=== PATIENT | male | born 1975 | race Caucasian/White ===

== ENCOUNTER 2024-07-13 19:10 | Emergency (ER) | payer OTHER, SELFPAY ==
--- NOTE | ~2024-07-13 | CT_ITS ---
EXAMINATION: CT HEAD WITHOUT CONTRAST CLINICAL INFORMATION: Headache with vomiting COMPARISON: None available. TECHNIQUE: Contiguous axial imaging was performed from the skull base to vertex without intravenous administration of contrast. This CT examination was performed using dose optimization techniques as appropriate, variously including the following: *Automated exposure control *Adjustment of mA and/or kV according to patient size (this includes techniques or standardized protocols for targeted exams where dose is matched to indication/reason for exam; i.e. extremities or head) *Use of iterative reconstruction technique DLP: 743 mGy-cm FINDINGS: No intracranial hemorrhage, tumors or acute infarcts identified. The ventricles and sulci are normal in size and configuration. No focal parenchymal lesions of the brain identified. The orbits and globes are normal in appearance. No intracranial soft tissue inflammatory changes noted. No significant opacification of the visualized paranasal sinuses, mastoid air cells and middle ear cavities. CT/CT head/brain wo IV con IMPRESSION: Normal unenhanced CT of the head Electronically signed by: John Ludwig MD 07/14/2024 03:31 AM EDT
[2024-07-13 19:15] VITALS: BP 141/99; PULSE 85; RESP 18; TEMP 36.9; O2SAT 95; BMI 36.0
--- NOTE | 2024-07-13 19:20 | ED_ITS ---
HPI - General Adult General Chief complaint: General Medical Stated complaint: migraine and abd pain x1wk Time Seen by Provider: 07/14/24 02:44 Source: patient and family Mode of arrival: ambulatory Limitations: no limitations History of Present Illness ED Provider: Dr. Brumfield HPI narrative: Patient does not have a history of prior headaches. He presents with a three day history of headache with nausea and vomiting. In addtion he has epigastric pain burning in nature. Onset (ago): day(s) Related Data Previous Rx's ?Medication ?Instructions ?Recorded naproxen 500 mg tablet (Naprosyn) 500 mg PO BID #20 tabs 07/14/24 ondansetron 4 mg disintegrating 4 mg PO Q8H 4 days #12 tabs 07/14/24 tablet pantoprazole 40 mg tablet,delayed 40 mg PO DAILY #20 tabs 07/14/24 release (Protonix) Allergies Allergy/AdvReac Type Severity Reaction Status Date / Time No Known Allergies Allergy Verified 07/13/24 19:19 Review of Systems 2 Review of Systems: Yes all other systems are reviewed and are negative Neurologic: Denies Sensory deficit (Neuro) [facility] Social History Social History Smoked in Last 30 Days: No Use of substances other than those prescribed or required for medical reasons: No Advance Directives: No Advance Directives Information Provided: No Do you have a plan to hurt others: No Plan Physical Exam ED Vital Signs: Vital Signs - 24 hr 07/13/24 19:15 07/14/24 00:52 07/14/24 02:50 Temperature 98.4 F 97.5 F 97.8 F Pulse Rate 85 101 H 82 Respiratory Rate 18 18 16 Blood Pressure 141/99 H 129/104 H 176/127 H Pulse Oximetry 95 96 95 Oxygen Delivery Method Room Air Room Air Room Air 07/14/24 03:12 07/14/24 04:01 Temperature 97.8 F Pulse Rate 72 65 Respiratory Rate 18 16 Blood Pressure 155/104 H 148/99 H Pulse Oximetry 97 95 Oxygen Delivery Method Room Air Room Air BMI result Body Mass Index 36.0 Const General: healthy appearing Nutritional Appearance: average body habitus Orientation/consciousness: oriented to person and patient oriented x3 Limitations: no limitations HENMT Head: Yes normal to inspection Ears: external ears normal General nose exam: Normal external nose present Mouth: Normal oral and palatal mucosa present and oropharynx normal Throat: Yes posterior oropharynx normal Eyes General: appearance normal, both eyes and all related structures Neck Neck: Yes normal visual inspection Chest Chest palpation & inspection: normal inspection of the chest Resp Auscultation: clear to auscultation bilaterally Cardio Jugular venous distension: no JVD Rate: regular rate Rhythm: regular rhythm Heart sounds: S1 normal heart sound present and S2 normal heart sound present GI Inspection: Yes normal to inspection Palpation (GI): Soft to palpation, nontender and No hepatosplenomegaly present Auscultation: normal bowel sounds General: Yes no CVA tenderness Back/Spine/Pelvis Back: no CVA tenderness Skin General skin exam: no rashes or lesions noted Neuro General: oriented to person and patient oriented x3 Cranial nerves: Yes CN's II-XII intact bilaterally Motor exam (neuro): 5/5 motor strength present throughout Sensory Exam: No Sensory deficit (Neuro) Extrem General: Yes normal to inspection Psych Appearance: grossly normal Course Course Course Narrative: RME, this is a rapid medical exam performed by Otto Marcano please refer to primary provider for complete H&P- 48-year-old male presents for evaluation of generalized epigastric pain, headache for the last 3 or 4 days. He reports nausea and vomiting today. Plan for labs, UA Reevaluation(s) Reevaluation #1: Head CT negative, patient with relief of headache after his medication will dc home Time: 04:51 Medications Administered Discontinued Medications Generic Name Dose Route Start Last Admin Trade Name Randyq PRN Reason Stop Dose Admin Ketorolac Tromethamine 30 mg 07/14/24 02:47 07/14/24 03:04 Ketorolac Tromethamine 30 Mg/Ml Vial IVPUSH 07/14/24 02:48 30 mg ONCE ONE Administration Metoclopramide HCl 10 mg 07/14/24 02:47 07/14/24 03:04 Metoclopramide Hcl 10 Mg/2 Ml Vial IVPUSH 07/14/24 02:48 10 mg ONCE ONE Administration Pantoprazole Sodium 40 mg 07/14/24 02:47 07/14/24 03:04 Pantoprazole Sodium 40 Mg/10 Ml Vial IVPUSH 07/14/24 02:48 40 mg ONCE ONE Administration Medical Decision Making Differential Diagnosis Differential Diagnoses: The differential diagnosis associated with the presentation includes (brain mass, brain bleed, migraine, headache, gastritis) Admission/Observation Consideration of admission/observation: Escalation of care including admission/observation considered (upon arrival patient considered for admission) Lab Data 07/13/24 19:30 07/13/24 19:30 Labs: Lab Results 07/13/24 07/14/24 Range/Units 19:30 03:12 WBC 8.6 (4.8-10.8) X10*3/uL RBC 5.77 (4.60-5.80) X10*6/uL Hgb 17.7 (14.0-18.0) g/dl Hct 49.6 (42.0-52.0) % MCV 86.0 (80.0-98.0) fL MCH 30.7 (27.0-33.0) pg MCHC 35.7 (31.0-36.0) g/dl RDW 12.1 (11.0-16.0) % Plt Count 199 (160-400) X10*3/uL MPV 10.5 (9.4-12.4) fL Immature Gran % (Auto) 0.2 (0.0-0.4) % Neut % (Auto) 59.5 (45-73) % Lymph % (Auto) 27.0 (20-40) % [place] % (Auto) 8.4 (2-11) % Eos % (Auto) 4.3 H (0-4) % Baso % (Auto) 0.6 (0-2) % Lymph # (Auto) 2.3 (1.2-4.9) X10*3/uL [place] # (Auto) 0.7 (0.1-1.2) X10*3/uL Eos # (Auto) 0.4 (0.0-0.4) X10*3/uL Baso # (Auto) 0.1 (0.0-0.2) X10*3/uL Abs Immat Gran (auto) 0.02 (0.00-0.03) X10*3/uL Absolute Neuts (auto) 5.1 (2.0-8.3) x10*3/uL Absolute Nucleated RBC 0.000 (0.0-0.012) X10*3/uL Nucleated RBC % (auto) 0.0 (0.0-0.2) /100WBC Sodium 139 (135-145) mmol/L Potassium 3.2 L (3.3-5.1) mmol/L Chloride 105 (96-108) mmol/L Carbon Dioxide 25 (22-29) mmol/L Anion Gap 12 (12-20) BUN 14 (9-16) mg/dL Creatinine 1.04 (0.5-1.4) mg/dL Estim Creat Clear Calc 91.4 Estimated GFR > 60 Random Glucose 113 (60-115) mg/dL Calcium 9.9 (8.4-10.2) mg/dL Total Bilirubin 0.4 (0.0-1.0) mg/dL AST 18 (5-37) U/L ALT 17 (0-40) U/L Alkaline Phosphatase 74 (39-117) U/L Total Protein 7.0 (6.5-8.0) g/dL Albumin 4.0 (3.5-5.0) g/dL Lipase 21 (8-78) U/L Urine Color Yellow Urine Appearance Clear Urine pH 5.5 (5.0-9.0) Ur Specific [place] 1.025 (1.005-1.025) Urine Protein Negative (Neg-Trace) mg/dL Urine Glucose (UA) Negative (Negative) mg/dL Urine Ketones Negative (Negative) mg/dL Urine Blood Negative (Negative) Urine Nitrite Negative (Negative) Ur Leukocyte Esterase Negative (Negative) Urine RBC 0-2 (0-2) /HPF Urine WBC 0-5 (0-5) /HPF Ur Squamous Epith Cells 0-2 (0-2) /HPF Urine Bacteria None Seen (None Seen) Hyaline Casts 0-2 (0-2) /LPF COVID-19 (ALICE) Negative (Negative) COVID-19 Clin Com See Note Independent Interpretation I performed an independent interpretation of an: Ultrasound (bedside US performed by me, no gallstones, normal gallbladder wall) and CT Scan (Brain: no mass or bleed) Independent Historian Clinical information obtained from an independent historian. History obtained from or confirmed by: Spouse Tests considered The following testing was considered but not selected: MRI of brain considered but patient is nonfocal and CT negative Prescription Management I considered prescription management with: Antibiotic (no evidence of infection) Discharge Plan Discharge Clinical Impression: Headache, Gastritis Patient Disposition: Home, Self-Care Instructions: Gastritis (ED), Acute Headache (ED) Prescriptions: New pantoprazole [Protonix] 40 mg tablet,delayed release (DR/EC) 40 mg PO DAILY Qty: 20 0RF ondansetron 4 mg tablet,disintegrating 4 mg PO Q8H 4 Days Qty: 12 0RF naproxen [Naprosyn] 500 mg tablet 500 mg PO BID Qty: 20 0RF Referrals: Physician,None [Primary Care Provider] - 5 days Print Language: Sierra Leonean
--- OUTSIDE RECORDS SUMMARY | 2024-07-13 19:35 | XMS_ITS | Continuity of Care Document ---
Author Organization [facility] Address [address] [place] [address]- Care Team Providers Care Architectural Designer Name Role Phone Ping Jimenez MD Primary Care Physician [phone] [place] [facility] [place]21 [facility] [address] [address] Attending Physician: AdmTalisha gallagher Admitting Physician: Admtr, Ar8 Referring Physician: Admtr, Ar8 Allergies, Adverse Reactions, Alerts Substance Reaction Severity Status NKA Active Immunizations Given and Recorded Vaccine Date Status Refusal Reason tetanus/diphtheria/pertussis, acel(Tdap) 04/12/21 Given tetanus/diphtheria/pertussis, acel(Tdap) 01/01/18 Given influenza virus vaccine, inactivated 11/07/19 Give n influenza virus vaccine, inactivated 1 08/05/13 Gi price influenza virus vaccine, inactivated 2 08/25/12 Gi price hepatitis B adult vaccine 08/25/12 Given FluLaval (oldterm) 3 09/06/10 Given Tetanus Toxoid Vaccine (oldterm) 4 02/16/09 Given 1Result Comment: [08/05/2013] Flulaval [id number] 2Admin Note: VIS 7-12 3Admin Note: vis given 4Admin Note: vis given Medications Blood pressure monitor Blood pressure monitor, See Instructions, # 1 each, Refills 0, Tot. Refills 0, Maintenance, Check BP once a day for hypertension., 07/22/21 17:18:00 EDT, Supply, 162, cm, 07/22/21 16:29:00 EDT, Height, 91, kg, 04/18/21 11:47:00 EDT, Dry Weight Start Date: 07/22/21 Status: Ordered chlorthalidone 50 mg oral tablet 1 tablet = 50 mg, By Mouth, Daily, # 30 tablet, 0 Refills, Maintenance, 07/11/21 11:15:00 EDT, Tablet, [facility]/pharmacy #[id number], 162, cm, 04/18/21 11:47:00 EDT, Height, 91, kg, 04/18/21 11:47:00 EDT, Dry Weight Start Date: 07/11/21 Status: Ordered CPAP sent to [facility] CPAP sent to [facility], See Instructions, # 1 units, Refills 0, Tot. Refills 0, Maintenance, CPAP script faxed to [facility], 01/12/19 11:44:52 EST, Compound Start Date: 01/12/19 Status: Ordered lisinopril 40 mg oral tablet 1 tablet = 40 mg, By Mouth, Daily, Please see your PCP for a physical and obtain labwork (ordered),# 30 tablet, 0 Refills, Maintenance, 07/11/21 11:15:00 EDT, Tablet, [facility]/pharmacy #[id number], 162, cm, 04/18/21 11:47:00 EDT, Height, 91, kg, 04/18/21 11:47:... Start Date: 07/11/21 Status: Ordered phenytoin 100 mg oral capsule, extended release 2 capsule = 200 mg, By Mouth, 2 times a day, # 360 capsule, 3 Refills, Maintenance, 12/28/20 19:23:00 EST, CR Capsule, [facility]/pharmacy #[id number], 167, cm, 02/02/20 9:57:00 EDT, Height, 96.6, kg, 02/02/20 9:57:00 EDT, Dry Weight Start Date: 12/28/20 Status: Ordered Problem List Condition Effective Dates Status Health Status Inform ant Erythrocytosis, Chronic(Confirmed) 1 Active Hypertension(Confirmed) Active Obstructive sleep apnea severe(Confirmed) 2019 Active Tonic-clonic seizures(Confirmed) Active Varicose veins(Confirmed) Active 1Seen by heme in 2019 (note in chart). JAK2 negative. Repeat H/H is 17.3/49.7. Based on this I do not think the patient requires therapeutic phlebotomies. Return to see me in the future should he have repeated hematocrits that are significantly over 50 drawn when he is not fasting. Social History Social History Type Response Tobacco Use: 4 or less cigar ettes(less than 1/4 pack)/day in last 30 days. Started at age: 18 Years. Sex Male
--- OUTSIDE RECORDS SUMMARY | 2024-07-13 19:35 | XMS_ITS | Continuity of Care Document ---
Author Organization [facility] Address [address] [place] [address]- Care Team Providers Care Dietetic Intern Name Role Phone Ping Jimenez MD Primary Care Physician [place] [facility] [place] 05/18/24 [facility] [address] [place], [place] [address] Discharge Disposition: A-D/C Home Attending Physician: David RAMOS(Hem/Onc), Sheldon Multani Admitting Physician: Mitra Pack Referring Physician: Ping Jimenez MD Allergies, Adverse Reactions, Alerts No Known Allergies Immunizations Given and Recorded Vaccine Date Status Refusal Reason SARS-CoV-2 (COVID-19) mRNA BNT-162b2 vac 09/04/21 Recorded SARS-CoV-2 (COVID-19) mRNA BNT-162b2 vac 08/14/21 Recorded tetanus/diphtheria/pertussis, acel(Tdap) 04/12/21 Given tetanus/diphtheria/pertussis, acel(Tdap) 01/01/18 Given influenza virus vaccine, inactivated 11/07/19 Give n influenza virus vaccine, inactivated 1 08/05/13 Gi price influenza virus vaccine, inactivated 2 08/25/12 Gi price hepatitis B adult vaccine 08/25/12 Given FluLaval (oldterm) 3 09/06/10 Given Tetanus Toxoid Vaccine (oldterm) 4 02/16/09 Given 1Result Comment: [08/05/2013] Flulaval [id number] 2Admin Note: VIS 7-12 3Admin Note: vis given 4Admin Note: vis given Medications chlorthalidone 25 mg oral tablet 25 mg, 1, tablet, By Mouth, Daily, # 90 tablet, Refills 1, Tot. Refills 1, Maintenance, 03/31/24 8:59:00 EDT, Route to Pharmacy Electronically, [facility]/pharmacy #[id number], Partial fill upon patient request if the prescription is for a schedule II opioid drug.... Start Date: 03/31/24 Status: Ordered chlorthalidone 25 mg oral tablet 25 mg, 1, tablet, By Mouth, Daily, for 90 days, # 90 tablet, Refills 11, Tot. Refills 11, Hard Stop12/31/25 8:56:00 EST, 01/16/23 8:56:00 EST, Route to Pharmacy Electronically, [facility]/pharmacy #[id number], 162, cm, 01/16/23 8:44:00 EST, Height, 91, kg, ... Start Date: 01/16/23 Stop Date: 12/31/25 Status: Ordered CPAP sent to [facility] CPAP sent to [facility], See Instructions, # 1 each, Refills 0, Tot. Refills 0, Maintenance, [facility] Dx: Obstructive Sleep Apnea ICD-10: G47.33 AutoCPAP 10-20 cm H2O with compliance, 01/16/23 9:17:00 EST, Compound Start Date: 01/16/23 Status: Ordered Home blood pressure monitor Home blood pressure monitor, See Instructions, # 1 each, Refills 0, Tot. Refills 0, Maintenance, ICD10; I10 To measure BP once per day [employer], 09/09/23 17:01:00 EDT, Supply Start Date: 09/09/23 Status: Ordered Keppra 500 mg oral tablet 1 tablet = 500 mg, By Mouth, 2 times a day, # 180 tablet, 11 Refills, Maintenance, 03/20/23 15:48:00 EDT, Tablet, [facility]/pharmacy #[id number], Partial fill upon patient request if the prescription is for a schedule II opioid drug., 162, cm, 03/20/23 15:20:00 E... Start Date: 03/20/23 Status: Ordered lisinopril 40 mg oral tablet 1 tablet = 40 mg, By Mouth, Daily, # 90 tablet, 1 Refills, Maintenance, 03/31/24 8:59:00 EDT, [facility]/pharmacy #[id number], Partial fill upon patient request if the prescription is for a schedule II opioid drug., 162.6, cm, 09/23/23 15:26:00 EDT, Height Start Date: 03/31/24 Status: Ordered lisinopril 40 mg oral tablet 1 tablet = 40 mg, By Mouth, Daily, for 90 days, Please see your PCP for a physical and obtain labwork (ordered), # 90 tablet, 11 Refills, Hard Stop 12/31/25 8:56:00 EST, 01/16/23 8:56:00 EST, Tablet,[facility]/pharmacy #[id number], 162, cm, 01/16/23 8:44:00 EST,... Start Date: 01/16/23 Stop Date: 12/31/25 Status: Ordered metoprolol 25 mg oral tablet, extended release 25 mg, 1, tablet, By Mouth, Daily, # 90 tablet, Refills 3, Tot. Refills 3, Maintenance, 09/09/23 15:34:00 EDT, Route to Pharmacy Electronically, [facility]/pharmacy #[id number], Partial fill upon patient request if the prescription is for a schedule II opioid drug... Start Date: 09/09/23 Status: Ordered phenytoin 100 mg oral capsule, extended release 2 capsule = 200 mg, By Mouth, 2 times a day, # 360 capsule, 1 Refills, 04/01/24 14:33:00 EDT, [facility]pharm[id number], 162.6, cm, 09/23/23 15:26:00 EDT, Height Start Date: 04/01/24 Status: Ordered Vitamin D3 50,000 intl units oral capsule 1 capsule = 1,250 mcg, By Mouth, Every week, # 12 capsule, 0 Refills, Maintenance, 03/20/23 15:45:00 EDT, Capsule, [facility]pharm[id number], Partial fill upon patient request if the prescription is for a schedule II opioid drug., 162, cm, 03/20/23 15:20:00... Start Date: 03/20/23 Status: Ordered Problem List Condition Confirmation Course Effective Dates Status Health St atus Informant Erythrocytosis, Chronic 1 Confirmed Active Hypertension Confirmed Active Obstructive sleep apnea severe Confirmed 2019 Active Severe obesity (BMI 35.0-39.9) with comorbidity Confirmed Active Tonic-clonic seizures Confirmed Active Varicose veins Confirmed Active 1Seen by heme in 2019 (note in chart). JAK2 negative. Repeat H/H is 17.3/49.7. Based on this I do not think the patient requires therapeutic phlebotomies. Return to see me in the future should he have repeated hematocrits that are significantly over 50 drawn when he is not fasting. Social History Social History Type Response Smoking Status 5-9 cigarettes (betw een 1/4 to 1/2 pack)/day in last 30 days entered on: 08/08/22 Sex Male Patient Care team information Care Team Personnel Name: Julien Gunn RN Position: [facility] RN Member Role: Primary Care Nurse Name: Ping Jimenez MD Position: [facility] Resident Member Role: PCP Address: Address: [address] [place] [address] [place] [address]- Care Team Related Persons Name: ALETA KATE Address: home [address] [place] [id number]
--- OUTSIDE RECORDS SUMMARY | 2024-07-13 19:35 | XMS_ITS | Continuity of Care Document ---
Author Organization [facility] Address [address] [place] [address]- Care Team Providers Care Mergers And Acquisitions Banker Name Role Phone Ping Jimenez MD Primary Care Physician Encounter [facility] [place] Date(s): 11/20/21 - 12/20/21 [facility] [address], [place] [address] Attending Physician: AdmTalisha gallagher Admitting Physician: AdmtrTalisha Referring Physician: Admtr, Ar8 Allergies, Adverse Reactions, Alerts No Known Allergies [...] 4 02/16/09 Given 1Result Comment: [08/05/2013] Flulaval [id number] 2Admin Note: VIS 7-12 3Admin Note: vis [...] 0 Refills, Maintenance, 07/11/21 11:15:00 EDT, Tablet, [facility]/pharmacy #[id number], 162, cm, 04/18/21 11:47:00 EDT, Height, 91, kg, 04/18/21 11:47:00 EDT, Dry Weight Start Date: 07/11/21 Status: Ordered CPAP sent to [facility] CPAP sent to [facility], See Instructions, # 1 units, Refills 0, Tot. Refills 0, Maintenance, CPAP script faxed to [facility], 01/12/19 11:44:52 EST, Compound Start Date: 01/12/19 Status: Ordered lisinopril 40 mg oral tablet 1 tablet = 40 mg, By Mouth, Daily, Please see your PCP for a physical and obtain labwork (ordered),# 30 tablet, 0 Refills, Maintenance, 07/11/21 11:15:00 EDT, Tablet, [facility]/pharmacy #[id number], 162, cm, 04/18/21 11:47:00 EDT, Height, 91, kg, 04/18/21 11:47:... Start Date: 07/11/21 Status: Ordered phenytoin 100 mg oral capsule, extended release 2 capsule, By Mouth, 2 times a day, # 360 capsule, 0 Refills, Maintenance, 11/06/21 13:41:00 EST, [id number], 162, cm, 07/23/21 8:04:00 EDT, Height, 91, kg, 04/18/21 11:47:00 EDT, Dry Weight Start Date: 11/06/21 Status: Ordered Problem List Condition Effective Dates [...]
--- OUTSIDE RECORDS SUMMARY | 2024-07-13 19:35 | XMS_ITS | Continuity of Care Document ---
Author Organization [facility] Address [address] [place] [address]- Care Team Providers Care County Demonstrator Name Role Phone Tony RAMOS, Ping Primary Care Physician [phone] Encounter [facility] [place]s): 07/15/21 - 09/13/21 [facility] [address] [place] [address] Attending Physician: Christi Carson MD Admitting Physician: Christi Carson MD Referring Physician: Kamar Carvalho MD Allergies, Adverse Reactions, Alerts Substance Reaction Severity Status NKA Active Immunizations Given and Recorded Vaccine Date Status Refusal Reason tetanus/diphtheria/pertussis, acel(Tdap) 04/12/21 Given tetanus/diphtheria/pertussis, acel(Tdap) 01/01/18 Given influenza virus vaccine, inactivated 11/07/19 Give n influenza virus vaccine, inactivated 1 08/05/13 Gi prcie influenza virus vaccine, inactivated 2 08/25/12 Gi price hepatitis B adult vaccine 08/25/12 Given FluLaval (oldterm) 3 09/06/10 Given Tetanus Toxoid Vaccine (oldterm) 4 02/16/09 Given 1Result Comment: [08/05/2013] Flulaval [id number] 2Admin Note: VIS 7-12 3Admin Note: vis [...] 0 Refills, Maintenance, 07/11/21 11:15:00 EDT, Tablet, [facility]/pharmacy #[id number], 162, cm, 04/18/21 11:47:00 EDT, Height, 91, kg, 04/18/21 11:47:00 EDT, Dry Weight Start Date: 07/11/21 Status: Ordered CPAP sent to [facility] CPAP sent to [facility], See Instructions, # 1 units, Refills 0, Tot. Refills 0, Maintenance, CPAP script faxed to [facility], 01/12/19 11:44:52 EST, Compound Start Date: 01/12/19 Status: Ordered lisinopril 40 mg oral tablet 1 tablet = 40 mg, By Mouth, Daily, Please see your PCP for a physical and obtain labwork (ordered),# 30 tablet, 0 Refills, Maintenance, 07/11/21 11:15:00 EDT, Tablet, [facility]/pharmacy #[id number], 162, cm, 04/18/21 11:47:00 EDT, Height, 91, kg, 04/18/21 11:47:... Start Date: 07/11/21 Status: Ordered phenytoin 100 mg oral capsule, extended release 2 capsule = 200 mg, By Mouth, 2 times a day, # 360 capsule, 3 Refills, Maintenance, 12/28/20 19:23:00 EST, CR Capsule, [id number], 167, cm, 02/02/20 9:57:00 EDT, Height, [...]
--- OUTSIDE RECORDS SUMMARY | 2024-07-13 19:35 | XMS_ITS | Continuity of Care Document ---
Author Organization [facility] Address [address] [place] [address]- Care Team Providers Care House Manager Name Role Phone Tony RAMOS, Ping Primary Care Physician [phone] Encounter [facility] Date(s): 07/11/21 - 08/10/21 [facility] [address], [place] [address] Allergies, Adverse Reactions, Alerts Substance Reaction Severity [...] 4 02/16/09 Given 1Result Comment: [08/05/2013] Flulaval [id number] 2Admin Note: VIS -12 3Admin Note: vis given 4Admin Note: vis [...] 0 Refills, Maintenance, 07/11/21 11:15:00 EDT, Tablet, [id number], 162, cm, 04/18/21 11:47:00 EDT, Height, 91, kg, 04/18/21 11:47:00 EDT, Dry Weight Start Date: 07/11/21 Status: Ordered CPAP sent to [facility] CPAP sent to [facility], See Instructions, # 1 units, Refills 0, Tot. Refills 0, Maintenance, CPAP script faxed to [facility], 01/12/19 11:44:52 EST, Compound Start Date: 01/12/19 Status: Ordered lisinopril 40 mg oral tablet 1 tablet = 40 mg, By Mouth, Daily, Please see your PCP for a physical and obtain labwork (ordered),# 30 tablet, 0 Refills, Maintenance, 07/11/21 11:15:00 EDT, Tablet, [id number], 162, cm, 04/18/21 11:47:00 EDT, Height, [...]
--- OUTSIDE RECORDS SUMMARY | 2024-07-13 19:35 | XMS_ITS | Continuity of Care Document ---
Author Organization [facility] Address [address] [place] [address]- Care Team Providers Care Boiler House Supervisor Name Role Phone Ping Jimenez MD Primary Care Physician [phone] [place] [facility] [place] 10[place]25/22 [facility] [address] [place] [address]- Attending Physician: Not on Staff, Attending MD Allergies, Adverse Reactions, Alerts No Known [...] 4 02/16/09 Given 1Result Comment: [08/05/2013] Flulaval [id number] 2Admin Note: VIS 7-12 3Admin Note: vis given 4Admin Note: vis given Medications chlorthalidone 25 mg oral tablet 25 mg, 1, tablet, By Mouth, Daily, for 90 days, # 90 tablet, Refills 11, Tot. Refills 11, Hard Stop05/19/25 15:58:00 EDT, 06/04/22 15:58:00 EDT, Route to Pharmacy Electronically, [facility]/pharmacy #[id number],162, cm, 06/04/22 15:28:00 EDT, Height, 91, kg, ... Start Date: 06/04/22 Stop Date: 05/19/25 Status: Ordered chlorthalidone 25 mg oral tablet 25 mg, 1, tablet, By Mouth, Daily, # 90 tablet, Refills 11, Tot. Refills 11, Maintenance, 05/19/25 15:58:00 EDT, Route to Pharmacy Electronically, [facility]/pharmacy #[id number], 162, cm, 06/04/22 15:28:00 EDT, Height, 91, kg, 04/18/21 11:47:00 EDT, Dry Weight Start Date: 05/19/25 Stop Date: 05/03/28 Status: Ordered CPAP sent to [facility] CPAP sent to [facility], See Instructions, # 1 units, Refills 0, Tot. Refills 0, Maintenance, CPAP script faxed to [facility], 01/12/19 11:44:52 EST, Compound Start Date: 01/12/19 Status: Ordered Keppra 500 mg oral tablet 1 tablet = 500 mg, By Mouth, 2 times a day, # 60 tablet, 5 Refills, Maintenance, 06/04/22 16:59:00 EDT, Tablet, [facility]/pharmacy #[id number], Partial fill upon patient request if the prescription is for a schedule II opioid drug., 162, cm, 06/04/22 15:28:00 EDT... Start Date: 06/04/22 Status: Ordered lisinopril 40 mg oral tablet 1 tablet = 40 mg, By Mouth, Daily, for 90 days, Please see your PCP for a physical and obtain labwork (ordered), # 90 tablet, 11 Refills, Hard Stop 05/19/25 15:56:00 EDT, 06/04/22 15:56:00 EDT, Tablet, [facility]/pharmacy #[id number], 162, cm, 06/04/22 15:28:00 ED... Start Date: 06/04/22 Stop Date: 05/19/25 Status: Ordered lisinopril 40 mg oral tablet 1 tablet = 40 mg, By Mouth, Daily, Please see your PCP for a physical and obtain labwork (ordered),# 90 tablet, 11 Refills, Maintenance, 05/19/25 15:56:00 EDT, Tablet, [id number], 162, cm, 06/04/22 15:28:00 EDT, Height, 91, kg, 04/18/21 11:47... Start Date: 05/19/25 Stop Date: 05/03/28 Status: Ordered phenytoin 100 mg oral capsule, extended release See Instructions, TAKE 2 CAPSULES BY MOUTH TWICE A DAY, # 120 capsule, 6 Refills, 06/04/22 16:56:00EDT, [id number], 162, cm, 06/04/22 15:28:00 EDT, Height, 91, kg, 04/18/21 11:47:00 EDT, DryWeight Start Date: 06/04/22 Status: Ordered Problem List Condition Confirmation Course Effective Dates Status Health St atus Informant Erythrocytosis, Chronic 1 Confirmed Active Hypertension Confirmed Active Obese class II Confirmed Active Obstructive sleep apnea severe Confirmed 2019 Active Tonic-clonic seizures Confirmed Active Varicose veins [...] Team Personnel Name: Julien Gunn RN Position: [facility] RN Member Role: Primary Care Nurse Name: Ping Jimenez MD Position: [facility] Resident Member Role: PCP Address: Address: [address] [place] [id number]- Care Team Related Persons Name: ALETA KATE Address: home [address] [address]
--- OUTSIDE RECORDS SUMMARY | 2024-07-13 19:35 | XMS_ITS | Continuity of Care Document ---
Author Organization [facility] Address [address] [place] [address]- Care Team Providers Care Thread Inspector Name Role Phone Pign Jimenez MD Primary Care Physician [phone] Encounter [place] Date(s): 01/15/23 - 02/14/23 [facility] [address] [place], [place] [address] Allergies, Adverse Reactions, Alerts No Known Allergies [...] 4 02/16/09 Given 1Result Comment: [08/05/2013] Flulaval [id number] 2Admin Note: VIS 7-12 3Admin Note: vis given 4Admin Note: vis given Medications chlorthalidone 25 mg oral tablet 25 mg, 1, tablet, By Mouth, Daily, for 90 days, # 90 tablet, Refills 11, Tot. Refills 11, Hard Stop12/31/25 8:56:00 EST, 01/16/23 8:56:00 EST, Route to Pharmacy Electronically, [facility]/pharmacy #[id number], 162, cm, 01/16/23 8:44:00 EST, Height, [...] each, Refills 0, Tot. Refills 0, Maintenance, Use as directed for assessment of blood pressure for management of hypertension [id number] Duration: lifetime, 12/19/22 13:13:00 EST, Supply Start Date: 12/19/22 Status: Ordered Keppra 500 mg oral tablet 1 tablet = 500 mg, By Mouth, 2 times a day, # 60 tablet, 5 Refills, Maintenance, 06/04/22 16:59:00 EDT, Tablet, [id number], Partial fill upon patient request [...] Stop 12/31/25 8:56:00 EST, 01/16/23 8:56:00 EST, Tablet,[id number], 162, cm, 01/16/23 8:44:00 EST,... Start Date: 01/16/23 Stop Date: 12/31/25 Status: Ordered phenytoin 100 mg oral capsule, extended release See Instructions, TAKE 2 CAPSULES BY MOUTH TWICE A DAY, # 120 capsule, 6 Refills, 06/04/22 16:56:00EDT, [id number], 162, cm, 06/04/22 15:28:00 EDT, Height, 91, kg, 04/18/21 11:47:00 EDT, DryWeight Start Date: 06/04/22 Status: Ordered Vitamin D3 1000 intl units oral capsule 1 capsule = 25 mcg, By Mouth, Daily, # 75 capsule, 3 Refills, Maintenance, 01/29/23 18:50:00 EST, Capsule, [facility]/pharmacy #[id number], Partial fill upon patient request if the prescription is for a schedule II opioid drug., 162, cm, 01/16/23 8:44:00 EST, Heig... Start Date: 01/29/23 Status: Ordered Problem List Condition Confirmation Course [...] Team Personnel Name: Julien Gunn RN Position: S RN Member Role: Primary Care Nurse Name: Ping Jimenez MD Position: [facility] Resident Member Role: PCP Address: Address: [address] [place] [address]- Care Team Related Persons Name: ALETA KATE Address: home [address] [address]
--- OUTSIDE RECORDS SUMMARY | 2024-07-13 19:35 | XMS_ITS | Continuity of Care Document ---
Author Organization [facility] Address [address] [place] [address]- Care Team Providers Care General Supervisor Name Role Phone Tony RAMOS, Pign Primary Care Physician [facility]counter [facility] Date(s): 07/22/21 - 08/21/21 [facility] [address] [place], [place] [address] Allergies, Adverse Reactions, Alerts Substance Reaction Severity [...] 4 02/16/09 Given 1Result Comment: [08/05/2013] Flulaval [id number] 2Admin Note: VIS 7-12 3Admin Note: vis [...] Date: 07/11/21 Status: Ordered CPAP sent to [facility] CPAP sent to [facility], See Instructions, # 1 units, Refills 0, Tot. Refills 0, Maintenance, CPAP script faxed to [facility], 01/12/19 11:44:52 EST, Compound Start Date: [...]
--- OUTSIDE RECORDS SUMMARY | 2024-07-13 19:35 | XMS_ITS | Continuity of Care Document ---
Author Organization [facility] Address [address] [place] [address]- Care Team Providers Care Soft Iron Inspector Name Role Phone Henry RAMOS, Christi Gracia Primary Care Physici an Encounter [facility] Date(s): 12/27/20 - 01/26/21 [facility] [address] [place] [address]- Allergies, Adverse Reactions, Alerts Substance Reaction Severity Status NKA Active Immunizations Given and Recorded Vaccine Date Status Refusal Reason influenza virus vaccine, inactivated 11/07/19 Give n influenza virus vaccine, inactivated 1 08/05/13 Gi price influenza virus vaccine, inactivated 2 08/25/12 Gi price tetanus/diphtheria/pertussis, acel(Tdap) 01/01/18 Given hepatitis B adult vaccine 08/25/12 Given FluLaval (oldterm) 3 09/06/10 Given Tetanus Toxoid Vaccine (oldterm) 4 02/16/09 Given 1Result Comment: [08/05/2013] Flulaval [id number] 2Admin Note: VIS 7-12 3Admin Note: vis given 4Admin Note: vis given Medications chlorthalidone 50 mg oral tablet 1 tablet = 50 mg, By Mouth, Daily, # 90 tablet, 1 Refills, Maintenance, 12/27/20 18:41:00 EST, Tablet, [id number], 167, cm, 02/02/20 9:57:00 EDT, Height, 96.6, kg, 02/02/20 9:57:00 EDT, Dry Weight Start Date: 12/27/20 Status: Ordered CPAP sent to [facility] CPAP sent to [facility], See Instructions, # 1 units, Refills 0, Tot. Refills 0, Maintenance, CPAP script faxed to [facility], 01/12/19 11:44:52 EST, Compound Start Date: 01/12/19 Status: Ordered lisinopril 40 mg oral tablet 1 tablet = 40 mg, By Mouth, Daily, # 90 tablet, 1 Refills, Maintenance, 12/27/20 18:42:00 EST, Tablet, [facility]/pharmacy #[id number], 167, cm, 02/02/20 9:57:00 EDT, Height, 96.6, kg, 02/02/20 9:57:00 EDT, Dry Weight Start Date: 12/27/20 Status: Ordered phenytoin 100 mg oral capsule, extended release 2 capsule = 200 mg, By Mouth, 2 times a day, # 360 capsule, 3 Refills, Maintenance, 12/28/20 19:23:00 EST, CR Capsule, [facility]/pharmacy #[id number], 167, cm, 02/02/20 9:57:00 EDT, Height, 96.6, kg, 02/02/20 9:57:00 EDT, Dry Weight Start Date: 12/28/20 Status: Ordered Problem List Condition Effective Dates Status Health Status Inform ant H/O polycythemia +tobacco(Confirmed) Active Hypertension(Confirmed) Active Obstructive sleep apnea severe(Confirmed) 2019 Active Tonic-clonic seizures(Confirmed) Active Varicose veins(Confirmed) Active Social History Social History Type Response Smoking Status Current some day [facility] [place] entered on: 08/09/15 Sex Male
--- OUTSIDE RECORDS SUMMARY | 2024-07-13 19:35 | XMS_ITS | Continuity of Care Document ---
Author Organization [facility] Address [address] [place] [address]- Care Team Providers Care Bank Appraiser Name Role Phone Tony RAMOS, Ping Primary Care Physician [facility]counter [facility] Date(s): 11/25/21 - 12/25/21 [facility] [address] [place], [place] [address] Allergies, Adverse Reactions, Alerts No Known [...] 4 02/16/09 Given 1Result Comment: [08/05/2013] Flulaval [id number] 2Admin Note: VIS -12 3Admin Note: vis [...] Date: 07/11/21 Status: Ordered CPAP sent to [facility] CPAP sent to [facility], See Instructions, # 1 units, Refills 0, Tot. Refills 0, Maintenance, CPAP script faxed to [facility], 01/12/19 11:44:52 EST, Compound Start Date: 01/12/19 [...]
--- OUTSIDE RECORDS SUMMARY | 2024-07-13 19:35 | XMS_ITS | Continuity of Care Document ---
Author Organization [facility] Address [address] [place] [address]- Care Team Providers Care C S S Representative Name Role Phone Ping Jimenez MD Primary Care Physician [phone] Encounter [facility] Date(s): 08/28/23 - 09/27/23 [facility] [address] [place] [address]- [place] Allergies, Adverse Reactions, Alerts No Known Allergies [...] 4 02/16/09 Given 1Result Comment: [08/05/2013] Flulaval [id number] 2Admin Note: VIS 7-12 3Admin Note: vis given 4Admin Note: vis given Medications chlorthalidone 25 mg oral tablet 25 mg, 1, tablet, By Mouth, Daily, # 30 tablet, Refills 5, Tot. Refills 5, Maintenance, 09/09/23 15:45:00 EDT, Route to Pharmacy Electronically, [facility]/pharmacy #[id number], Partial fill upon patient request if the prescription is for a schedule II opioid drug... Start Date: 09/09/23 Status: Ordered chlorthalidone 25 mg oral tablet 25 mg, 1, tablet, By Mouth, Daily, for 90 days, # 90 tablet, Refills 11, Tot. Refills 11, Hard Stop12/31/25 8:56:00 EST, 01/16/23 8:56:00 EST, Route to Pharmacy Electronically, [facility]/pharmacy #[id number], 162, cm, 01/16/23 8:44:00 EST, Height, 91, kg, 04/18/... Start Date: 01/16/23 Stop Date: 12/31/25 Status: [...] 11 Refills, Maintenance, 03/20/23 15:48:00 EDT, Tablet, [facility]/pharmacy #[id number], Partial fill upon patient request if the prescription is for a schedule II opioid drug., 162, cm, 03/20/23 15:20:00 E... Start Date: 03/20/23 Status: Ordered lisinopril 40 mg oral tablet 1 tablet = 40 mg, By Mouth, Daily, # 30 tablet, 5 Refills, Maintenance, 09/09/23 15:45:00 EDT, [facility]/pharmacy #[id number], Partial fill upon patient request if the prescription is for a schedule II opioid drug., 162, cm, 09/09/23 14:51:00 EDT, Height Start Date: 09/09/23 Status: Ordered lisinopril 40 mg oral tablet 1 tablet = 40 mg, By Mouth, Daily, for 90 days, Please see your PCP for a physical and obtain labwork (ordered), # 90 tablet, 11 Refills, Hard Stop 12/31/25 8:56:00 EST, 01/16/23 8:56:00 EST, Tablet,[facility]/pharmacy #[id number], 162, cm, 01/16/23 8:44:00 EST,... Start Date: 01/16/23 Stop Date: 12/31/25 Status: Ordered metoprolol 25 mg oral tablet, extended release 25 mg, 1, tablet, By Mouth, Daily, # 90 tablet, Refills 3, Tot. Refills 3, Maintenance, 09/09/23 15:34:00 EDT, Route to Pharmacy Electronically, [facility]/pharmacy #[id number], Partial fill upon patient request if the prescription is for a schedule II opioid drug... Start Date: 09/09/23 Status: Ordered phenytoin 100 mg oral capsule, extended release 2 capsule = 200 mg, By Mouth, 2 times a day, # 360 capsule, 11 Refills, 03/20/23 15:48:00 EDT, [facility]/pharmacy #[id number], 162, cm, 03/20/23 15:20:00 EDT, Height, 91, kg, 04/18/21 11:47:00 EDT, Dry Weight Start Date: 03/20/23 Status: Ordered Vitamin D3 50,000 intl units oral capsule 1 capsule = 1,250 mcg, By Mouth, Every week, # 12 capsule, 0 Refills, Maintenance, 03/20/23 15:45:00 EDT, Capsule, [facility]/pharmacy #[id number], Partial fill upon patient request if [...] Care Nurse Name: Ping Jimenez MD Position: [facility] Resident Member Role: PCP Address: Address: [address] [place] [address]- Care Team Related Persons Name: ALETA KATE Address: home [address] [place] [address]
--- OUTSIDE RECORDS SUMMARY | 2024-07-13 19:35 | XMS_ITS | Continuity of Care Document ---
Author Organization [facility] Address [address] [place] [address]- Care Team Providers Care Necktie Stitcher Name Role Phone Ping Jimenez MD Primary Care Physician [facility]counter [facility] Date(s): 03/21/22 - 04/20/22 [facility] [address] [place] [address]- Attending Physician: Talisha Wyman Admitting Physician: AdmTalisha gallagher Referring Physician: AdmtrTalisha Allergies, Adverse Reactions, Alerts No Known Allergies [...] 4 02/16/09 Given 1Result Comment: [08/05/2013] Flulaval [id number] 2Admin Note: VIS 7-12 3Admin Note: vis [...] 0 Refills, Maintenance, 07/11/21 11:15:00 EDT, Tablet, [facility]/pharmacy #[id number], 162, cm, 04/18/21 11:47:00 EDT, Height, 91, kg, 04/18/21 11:47:00 EDT, Dry Weight Start Date: 07/11/21 Status: Ordered CPAP sent to [facility] CPAP sent to [facility], See Instructions, # 1 units, Refills 0, Tot. Refills 0, Maintenance, CPAP script faxed to [facility], 01/12/19 11:44:52 EST, Compound Start Date: 01/12/19 Status: Ordered lisinopril 40 mg oral tablet 1 tablet = 40 mg, By Mouth, Daily, Please see your PCP for a physical and obtain labwork (ordered),# 30 tablet, 0 Refills, Maintenance, 07/11/21 11:15:00 EDT, Tablet, [facility]/pharmacy #[id number], 162, cm, 04/18/21 11:47:00 EDT, Height, 91, kg, 04/18/21 11:47:... Start Date: 07/11/21 Status: Ordered phenytoin 100 mg oral capsule, extended release See Instructions, TAKE 2 CAPSULES BY MOUTH TWICE A DAY, # 120 capsule, 0 Refills, Maintenance, 02/09/22 15:18:00 EDT, [id number], 162, cm, 07/23/21 8:04:00 EDT, Height, 91, kg, 04/18/21 11:47:00 EDT, Dry Weight Start Date: 02/09/22 Status: Ordered phenytoin 100 mg oral capsule, extended release See Instructions, TAKE 2 CAPSULES BY MOUTH TWICE A DAY, # 120 capsule, 0 Refills, [facility] ST[id number], 162, cm, 02/12/22 15:09:00 EDT, Height, 91, kg, 04/18/21 11:47:00 EDT, Dry Weight Start Date: 03/12/22 Status: Ordered phenytoin 100 mg oral capsule, extended release 2 capsule, By Mouth, 2 times a day, # 360 capsule, 0 Refills, Maintenance, 11/06/21 13:41:00 EST, [id number], 162, cm, 07/23/21 8:04:00 EDT, Height, 91, kg, 04/18/21 11:47:00 EDT, Dry Weight Start Date: 11/06/21 Status: Ordered Problem List Condition Effective Dates Status Health Status Inform ant Erythrocytosis, Chronic(Confirmed) 1 Active Hypertension(Confirmed) Active Obese class I(Confirmed) Active Obstructive sleep apnea severe(Confirmed) 2019 Active [...]
--- OUTSIDE RECORDS SUMMARY | 2024-07-13 19:35 | XMS_ITS | Continuity of Care Document ---
Author Organization [facility] Address [address] [place] [address]- Care Team Providers Care Proj Engineer Name Role Phone Ping Jimenez MD Primary Care Physician Encounter [facility] Date(s): 04/07/24 - 05/07/24 [facility] [address] [place], [place] [phone] Allergies, Adverse Reactions, Alerts No Known Allergies [...] 4 02/16/09 Given 1Result Comment: [08/05/2013] Flulaval [id number] 2Admin Note: VIS 7-12 3Admin Note: vis given 4Admin Note: vis given Medications chlorthalidone 25 mg oral tablet 25 mg, 1, tablet, By Mouth, Daily, # 90 tablet, Refills 1, Tot. Refills 1, Maintenance, 03/31/24 8:59:00 EDT, Route to Pharmacy Electronically, [facility]/pharmacy #[id number], Partial fill upon patient request if the prescription is for a schedule II opioid drug.... Start Date: 03/31/24 Status: Ordered chlorthalidone 25 mg oral tablet 25 mg, 1, tablet, By Mouth, Daily, for 90 days, # 90 tablet, Refills 11, Tot. Refills 11, Hard Stop12/31/25 8:56:00 EST, 01/16/23 8:56:00 EST, Route to Pharmacy Electronically, [facility]/pharmacy #[id number], 162, cm, 01/16/23 8:44:00 [...] Refills, Maintenance, 03/20/23 15:48:00 EDT, Tablet, [facility]/pharmacy #[id number], Partial fill upon patient request if the prescription is for a schedule II opioid drug., 162, cm, 03/20/23 15:20:00 E... Start Date: 03/20/23 Status: Ordered lisinopril 40 mg oral tablet 1 tablet = 40 mg, By Mouth, Daily, # 90 tablet, 1 Refills, Maintenance, 03/31/24 8:59:00 EDT, [facility]/pharmacy #[id number], Partial fill upon patient [...] 12/31/25 8:56:00 EST, 01/16/23 8:56:00 EST, Tablet,[facility]/pharmacy #[id number], 162, cm, 01/16/23 8:44:00 [...] Care Nurse Name: Ping Jimenez MD Position: [facility] Resident Member Role: PCP Address: Address: [address] [place] [address] [place] [address]- Care Team Related Persons Name: HUMBLE ALETA Address: home [address] [address]
--- OUTSIDE RECORDS SUMMARY | 2024-07-13 19:35 | XMS_ITS | Continuity of Care Document ---
Author Organization [facility] Address [address] [place] [address]- Care Team Providers Care Wet Process Miller Head Assistant Name Role Phone Ping Jimenez MD Primary Care Physician [place] [facility]09[place]23 - 11/20/23 [facility] [address] [place] [address]- Attending Physician: Walker Mortensen MD Admitting Physician: Walker Mortensen MD Allergies, Adverse Reactions, Alerts No Known [...] 4 02/16/09 Given 1Result Comment: [08/05/2013] Flulaval [id number] 2Admin Note: VIS 7-12 3Admin Note: vis given 4Admin Note: vis given Medications chlorthalidone 25 mg oral tablet 25 mg, 1, tablet, By Mouth, Daily, # 30 tablet, Refills 5, Tot. Refills 5, Maintenance, 09/09/23 15:45:00 EDT, Route to Pharmacy Electronically, [facility]/pharmacy #[id number], Partial fill upon patient request if the prescription is for a schedule II opioid drug... Start Date: 09/09/23 Status: Ordered chlorthalidone 25 mg oral tablet 25 mg, 1, tablet, By Mouth, Daily, for 90 days, # 90 tablet, Refills 11, Tot. Refills 11, Hard Stop12/31/25 8:56:00 EST, 01/16/23 8:56:00 EST, Route to Pharmacy Electronically, [facility]/pharmacy #[id number], 162, cm, 01/16/23 8:44:00 EST, Height, 91, kg, 04/18/... Start Date: 01/16/23 Stop Date: 12/31/25 Status: Ordered CPAP sent to [facility] CPAP sent to [facility] [place], See Instructions, # 1 each, Refills 0, [...] 11 Refills, Maintenance, 03/20/23 15:48:00 EDT, Tablet, [facility]/pharmacy #[id number], Partial fill upon patient request if the prescription is for a schedule II opioid drug., 162, cm, 03/20/23 15:20:00 E... Start Date: 03/20/23 Status: Ordered lisinopril 40 mg oral tablet 1 tablet = 40 mg, By Mouth, Daily, # 30 tablet, 5 Refills, Maintenance, 09/09/23 15:45:00 EDT, [facility]/pharmacy #[id number], Partial fill upon patient request [...] 360 capsule, 11 Refills, 03/20/23 15:48:00 EDT, [id number], 162, cm, 03/20/23 15:20:00 EDT, Height, [...] Team Personnel Name: Julien Gunn RN Position: [facility] RN Member Role: Primary Care Nurse Name: Ping Jimenez MD Position: [facility] Resident Member Role: PCP Address: Address: [address] [place] [address] [place] [address]- Care Team Related Persons Name: ALETA KATE Address: home [address] [place] [address]
--- OUTSIDE RECORDS SUMMARY | 2024-07-13 19:35 | XMS_ITS | Continuity of Care Document ---
Author Organization [facility] Address [address] [place] [address]- Care Team Providers Care Winding Inspector Name Role Phone Henry RAMOS, Christi Gracia Primary Care Physici an [facility] Date(s): 10/01/20 - 10/31/20 [facility] [address] [place] [address]- Allergies, Adverse Reactions, Alerts Substance Reaction Severity [...] 4 02/16/09 Given 1Result Comment: [08/05/2013] Flulaval [id number] 2Admin Note: VIS 7-12 3Admin Note: vis given 4Admin Note: vis given Medications chlorthalidone 50 mg oral tablet 1 tablet = 50 mg, By Mouth, Daily, # 90 tablet, 0 Refills, Maintenance, 10/01/20 19:40:00 EST, Tablet, [id number], 167, cm, 02/02/20 9:57:00 EDT, Height, 96.6, kg, 02/02/20 9:57:00 EDT, Dry Weight Start Date: 10/01/20 Status: Ordered CPAP sent to [facility] CPAP sent to [facility], See Instructions, # 1 units, Refills 0, Tot. Refills 0, Maintenance, CPAP script faxed to [facility], 01/12/19 11:44:52 EST, Compound Start Date: 01/12/19 Status: Ordered lisinopril 40 mg oral tablet 1 tablet = 40 mg, By Mouth, Daily, # 90 tablet, 0 Refills, Maintenance, 10/01/20 19:41:00 EST, Tablet, [facility]/pharmacy #[id number], 167, cm, 02/02/20 9:57:00 EDT, Height, 96.6, kg, 02/02/20 9:57:00 EDT, Dry Weight Start Date: 10/01/20 Status: Ordered phenytoin 100 mg oral capsule, extended release 2 capsule = 200 mg, By Mouth, 2 times a day, # 360 capsule, 1 Refills, Maintenance, 10/01/20 19:41:00 EST, CR Capsule, [facility]/pharmacy #[id number], 167, cm, 02/02/20 9:57:00 EDT, Height, 96.6, kg, 02/02/20 9:57:00 EDT, Dry Weight Start Date: 10/01/20 Status: Ordered Problem List Condition Effective Dates Status Health Status Inform ant H/O polycythemia +tobacco(Confirmed) Active Hypertension(Confirmed) Active Obstructive sleep apnea severe(Confirmed) 2019 Active Tonic-clonic seizures(Confirmed) Active Varicose veins(Confirmed) Active Social History Social History Type Response Smoking Status Current some day [facility] entered on: 08/09/15 Sex Male
--- OUTSIDE RECORDS SUMMARY | 2024-07-13 19:35 | XMS_ITS | Continuity of Care Document ---
Author Organization [facility] Address [address] [place] [address]- Care Team Providers Care Fountain Vending Mechanic Name Role Phone Henry RAMOS, Christi Gracia Primary Care Physici an [place] [facility] [place] 10[place]10[place]19 - 11/11/19 [facility] [address] [place] [address] [facility] Attending Physician: Clark Peña MD Admitting Physician: Clark Peña MD Referring Physician: Christi Figueroa MD Allergies, Adverse Reactions, Alerts Substance Reaction [...] 4 02/16/09 Given 1Result Comment: [08/05/2013] Flulaval [id number] 2Admin Note: VIS -12 3Admin Note: vis given 4Admin Note: vis given Medications chlorthalidone 50 mg oral tablet 1 tablet = 50 mg, By Mouth, Daily, # 90 tablet, 3 Refills, Maintenance, 05/10/19 9:54:38 EDT, Tablet Start Date: 05/10/19 Status: Ordered CPAP [facility] to [facility] to [facility], See Instructions, # 1 units, Refills 0, Tot. Refills 0, Maintenance, [facility] to [facility], 01/12/19 11:44:52 EST, Compound Start Date: 01/12/19 Status: Ordered lisinopril 40 mg oral tablet 1 tablet = 40 mg, By Mouth, Daily, # 90 tablet, 3 Refills, Maintenance, 05/10/19 9:54:07 EDT, Tablet Start Date: 05/10/19 Status: Ordered phenytoin 100 mg oral capsule, extended release 2 capsule = 200 mg, By Mouth, 2 times a day, # 360 capsule, 4 Refills, Maintenance, 12/16/18 9:09:11 EST, CR Capsule Start Date: 12/16/18 Status: Ordered Problem List Condition Effective Dates Status Health Status Inform ant H/O polycythemia +tobacco(Confirmed) Active Hypertension(Confirmed) Active Obstructive sleep apnea severe(Confirmed) 2019 Active Tonic-clonic seizures(Confirmed) Active Varicose veins(Confirmed) Active Social History Social History Type Response Smoking Status Current some day smo ker entered on: 08/09/15 Sex Male
--- OUTSIDE RECORDS SUMMARY | 2024-07-13 19:35 | XMS_ITS | Continuity of Care Document ---
Author Organization [facility] Address [address] [place] [address]- Care Team Providers Care Land Leasing Information Clerk Name Role Phone Henry RAMOS, Christi Gracia Primary Care Physici an En[place] [facility] [place] Date(s): 07/12/20 - 08/11/20 [facility] [address] [place] [address]- [facility] Allergies, Adverse Reactions, Alerts Substance Reaction Severity [...] 4 02/16/09 Given 1Result Comment: [08/05/2013] Flulaval [id number] 2Admin Note: VIS - 3Admin Note: vis given 4Admin Note: vis given Medications chlorthalidone 50 mg oral tablet 1 tablet = 50 mg, By Mouth, Daily, # 90 tablet, 0 Refills, Maintenance, 07/12/20 17:11:00 EDT, Tablet, [id number], 167, cm, 02/02/20 9:57:00 EDT, Height, 96.6, kg, 02/02/20 9:57:00 EDT, Dry Weight Start Date: 07/12/20 Status: Ordered CPAP sent to [facility] sent to [facility], See Instructions, # 1 units, Refills 0, Tot. Refills 0, Maintenance, [facility]AP script faxed to [facility], 01/12/19 11:44:52 EST, Compound Start Date: 01/12/19 Status: Ordered lisinopril 40 mg oral tablet 1 tablet = 40 mg, By Mouth, Daily, # 90 tablet, 0 Refills, Maintenance, 07/12/20 17:11:00 EDT, Tablet, [facility]/pharmacy #[id number], 167, cm, 02/02/20 9:57:00 EDT, Height, 96.6, kg, 02/02/20 9:57:00 EDT, Dry Weight Start Date: 07/12/20 Status: Ordered phenytoin 100 mg oral capsule, extended release 2 capsule = 200 mg, By Mouth, 2 times a day, # 360 capsule, 1 Refills, Maintenance, 02/08/20 10:24:00 EDT, CR Capsule, [facility]/pharmacy #[id number], 167, cm, 02/02/20 9:57:00 EDT, Height, 96.6, kg, 02/02/20 9:57:00 EDT, Dry Weight Start Date: 02/08/20 Status: Ordered Problem List Condition Effective Dates Status Health Status Inform ant H/O polycythemia +tobacco(Confirmed) Active Hypertension(Confirmed) Active Obstructive sleep apnea severe(Confirmed) 2019 Active Tonic-clonic seizures(Confirmed) Active Varicose veins(Confirmed) Active Social History Social History Type Response Smoking Status Current some day smo ker entered on: 08/09/15 Sex Male
--- OUTSIDE RECORDS SUMMARY | 2024-07-13 19:35 | XMS_ITS | Continuity of Care Document ---
Author Organization [facility] Address [address] [place] [address]- Care Team Providers Care Loss Prevention Consultant Name Role Phone Ping Jimenez MD Primary Care Physician [phone] [facility] [place] 05/12/24 [facility] [address] [place], [place] [phone] Attending Physician: Admelliott, Talisha Admitting Physician: AdmtrTalisha Referring Physician: Admtr, Ar8 [...] 4 02/16/09 Given 1Result Comment: [08/05/2013] Flulaval [id number] 2Admin Note: VIS 7-12 3Admin Note: vis given 4Admin Note: vis given Medications chlorthalidone 25 mg oral tablet 25 mg, 1, tablet, By Mouth, Daily, # 90 tablet, Refills 1, Tot. Refills 1, Maintenance, 03/31/24 8:59:00 EDT, Route to Pharmacy Electronically, [facility]/pharm[facility] #[id number], Partial fill upon patient request if the prescription is for a schedule II opioid drug.... Start Date: 03/31/24 Status: Ordered chlorthalidone 25 mg oral tablet 25 mg, 1, tablet, By Mouth, Daily, for 90 days, # 90 tablet, Refills 11, Tot. Refills 11, Hard Stop12/31/25 8:56:00 EST, 01/16/23 8:56:00 EST, Route to Pharmacy Electronically, [facility]/pharm[facility] #[id number], 162, cm, 01/16/23 8:44:00 EST, Height, 91, kg, ... Start Date: 01/16/23 Stop Date: 12/31/25 Status: Ordered CPAP [facility] to [facility], See Instructions, # 1 each, Refills 0, [...] 11 Refills, Maintenance, 03/20/23 15:48:00 EDT, Tablet, [facility]/pharmacy #[id number], Partial fill upon patient request if the prescription is for a schedule II opioid drug., 162, cm, 03/20/23 15:20:00 E... Start Date: 03/20/23 Status: Ordered lisinopril 40 mg oral tablet 1 tablet = 40 mg, By Mouth, Daily, # 90 tablet, 1 Refills, Maintenance, 03/31/24 8:59:00 EDT, [facility]/pharm[facility] #[id number], Partial fill upon patient request [...] Team Personnel Name: Julien Gunn RN Position: [facility] RN Member Role: Primary Care Nurse Name: Ping Jimenez MD Position: [facility] Resident Member Role: PCP Address: Address: [address] [place] [address] [place] [address]- Care Team Related Persons Name: ALETA KATE Address: home [address] [address]
--- OUTSIDE RECORDS SUMMARY | 2024-07-13 19:35 | XMS_ITS | Continuity of Care Document ---
Author Organization [facility] Address [address] [place] [address]- Care Team Providers Care Fumigator And Sterilizer Name Role Phone Henry RAMOS, Christi Gracia Primary Care Physici an En[place] [facility] [place] Date(s): 10/01/20 - 11/02/20 [facility] [address] [place] [address]- Attending Physician: Walker Mortensen MD Admitting Physician: Walker Mortensen MD Referring Physician: Christi Figueroa MD Allergies, [...] 4 02/16/09 Given 1Result Comment: [08/05/2013] Flulaval [id number] 2Admin Note: VIS - 3Admin Note: vis given 4Admin Note: vis given Medications chlorthalidone 50 mg oral tablet 1 tablet = 50 mg, By Mouth, Daily, # 90 tablet, 0 Refills, Maintenance, 10/01/20 19:40:00 EST, Tablet, [id number], 167, cm, 02/02/20 9:57:00 EDT, Height, 96.6, kg, 02/02/20 9:57:00 EDT, Dry Weight Start Date: 10/01/20 Status: Ordered CPAP [facility] to [facility] sent to [facility], See Instructions, # 1 units, Refills 0, Tot. Refills 0, Maintenance, [facility] script fax[facility] to [facility], 01/12/19 11:44:52 EST, Compound Start Date: 01/12/19 Status: Ordered lisinopril 40 mg oral tablet 1 tablet = 40 mg, By Mouth, Daily, # 90 tablet, 0 Refills, Maintenance, 10/01/20 19:41:00 EST, Tablet, [facility]/pharmacy #[id number], 167, cm, 02/02/20 9:57:00 EDT, Height, 96.6, kg, 02/02/20 9:57:00 EDT, Dry Weight Start Date: 10/01/20 Status: Ordered phenytoin 100 mg oral capsule, extended release 2 capsule = 200 mg, By Mouth, 2 times a day, # 360 capsule, 1 Refills, Maintenance, 10/01/20 19:41:00 EST, CR Capsule, [facility]/pharmacy #[id number], 167, cm, 02/02/20 9:57:00 EDT, [...]
--- OUTSIDE RECORDS SUMMARY | 2024-07-13 19:35 | XMS_ITS | Continuity of Care Document ---
Author Organization [facility] Address [address] [place] [address]- Care Team Providers Care Flame Channeler Name Role Phone Henry RAMOS, Christi Gracia Primary Care Physici an Encounter [facility] Date(s): 11/07/19 - 11/17/19 [facility] [address] [place] [address]- [facility] Attending Physician: Talisha Wyman Admitting Physician: Talisha Wyman Referring Physician: AdmtrTalisha Allergies, Adverse Reactions, Alerts Substance Reaction Severity [...] 4 02/16/09 Given 1Result Comment: [08/05/2013] Flulaval [id number] 2Admin Note: VIS -12 3Admin Note: vis given 4Admin Note: vis given Medications chlorthalidone 50 mg oral tablet 1 tablet = 50 mg, By Mouth, Daily, # 90 tablet, 3 Refills, Maintenance, 05/10/19 9:54:38 EDT, Tablet Start Date: 05/10/19 Status: Ordered [facility] to [facility] sent to [facility], See Instructions, # 1 units, Refills 0, Tot. Refills 0, Maintenance, [facility], 01/12/19 11:44:52 EST, Compound Start Date: [...]
--- OUTSIDE RECORDS SUMMARY | 2024-07-13 19:35 | XMS_ITS | Continuity of Care Document ---
Author Organization [facility] Address [address] [place] [address]- Care Team Providers Care Middle School History Teacher Name Role Phone Ping Jimenez MD Primary Care Physician [place] [facility] [place](s): 06/04/22 - 07/04/22 [facility] [address] [place] [address] Attending Physician: Talisha Wyman Admitting Physician: AdmTalisha gallagher Referring Physician: Admtr, ArJeri Allergies, Adverse Reactions, Alerts No Known Allergies [...] 4 02/16/09 Given 1Result Comment: [08/05/2013] Flulaval [id number] 2Admin Note: VIS 7-12 3Admin Note: vis given 4Admin Note: vis given Medications chlorthalidone 25 mg oral tablet 25 mg, 1, tablet, By Mouth, Daily, for 90 days, # 90 tablet, Refills 11, Tot. Refills 11, Hard Stop05/19/25 15:58:00 EDT, 06/04/22 15:58:00 EDT, Route to Pharmacy Electronically, [facility]/pharmacy #[id number],162, cm, 06/04/22 15:28:00 EDT, Height, 91, kg, ... Start Date: 06/04/22 Stop Date: 05/19/25 Status: Ordered chlorthalidone 25 mg oral tablet 25 mg, 1, tablet, By Mouth, Daily, # 90 tablet, Refills 11, Tot. Refills 11, Maintenance, 05/19/25 15:58:00 EDT, Route to Pharmacy Electronically, [facility]/pharmacy #[id number], 162, cm, 06/04/22 15:28:00 EDT, Height, 91, kg, 04/18/21 11:47:00 EDT, Dry Weight Start Date: 05/19/25 Stop Date: 05/03/28 Status: Ordered CPAP sent to [facility] CPAP sent to [facility], See Instructions, # 1 units, Refills 0, Tot. Refills 0, Maintenance, CPAP script faxed to [facility], 01/12/19 11:44:52 EST, Compound Start Date: 01/12/19 Status: Ordered Keppra 500 mg oral tablet 1 tablet = 500 mg, By Mouth, 2 times a day, # 60 tablet, 5 Refills, Maintenance, 06/04/22 16:59:00 EDT, Tablet, [facility]/pharmacy #[id number], Partial fill upon patient request if [...] 05/19/25 15:56:00 EDT, 06/04/22 15:56:00 EDT, Tablet, [facility]/pharmacy #[id number], 162, cm, 06/04/22 15:28:00 ED... Start Date: 06/04/22 Stop Date: 05/19/25 Status: Ordered lisinopril 40 mg oral tablet 1 tablet = 40 mg, By Mouth, Daily, Please see your PCP for a physical and obtain labwork (ordered),# 90 tablet, 11 Refills, Maintenance, 05/19/25 15:56:00 EDT, Tablet, [facility]/pharmacy #[id number], 162, cm, 06/04/22 15:28:00 EDT, Height, [...] Date: 06/04/22 Status: Ordered Problem List Condition Effective Dates [...]
--- OUTSIDE RECORDS SUMMARY | 2024-07-13 19:35 | XMS_ITS | Continuity of Care Document ---
Author Organization [facility] Address [address] [place] [address]- Care Team Providers Care Principal Ios Developer Name Role Phone Ping Jimenez MD Primary Care Physician [phone] [place] [facility] [place] 07/15/21 - 09/05/21 [facility] [address] [place] [id number] Attending Physician: Not on Staff, Attending MD Allergies, Adverse Reactions, Alerts Substance Reaction [...] 4 02/16/09 Given 1Result Comment: [08/05/2013] Flulaval [id number] 2Admin Note: VIS -12 3Admin Note: vis [...] Date: 07/11/21 Status: Ordered CPAP sent to [facility] CPAP sent to [facility], See Instructions, # 1 units, Refills 0, Tot. Refills 0, Maintenance, CPAP script faxed to [facility], 01/12/19 11:44:52 EST, Compound Start Date: [...]
--- OUTSIDE RECORDS SUMMARY | 2024-07-13 19:35 | XMS_ITS | Continuity of Care Document ---
Author Organization [facility] Address [address] [place] [address]- Care Team Providers Care Campus Recruiting Intern Name Role Phone Ping Jimenez MD Primary Care Physician Encounter [facility] Date(s): 09/09/23 - 10/09/23 [facility] [address] [place], [place] [address] Allergies, Adverse Reactions, Alerts No [...] 4 02/16/09 Given 1Result Comment: [08/05/2013] Flulaval [id number] 2Admin Note: VIS 7-12 3Admin Note: vis given 4Admin Note: vis given Medications chlorthalidone 25 mg oral tablet 25 mg, 1, tablet, By Mouth, Daily, # 30 tablet, Refills 5, Tot. Refills 5, Maintenance, 09/09/23 15:45:00 EDT, Route to Pharmacy Electronically, [facility]/pharmacy #[id number], Partial fill upon patient request if the prescription is for a schedule II opioid drug... Start Date: 09/09/23 Status: Ordered chlorthalidone 25 mg oral tablet 25 mg, 1, tablet, By Mouth, Daily, for 90 days, # 90 tablet, Refills 11, Tot. Refills 11, Hard Stop12/31/25 8:56:00 EST, 01/16/23 8:56:00 EST, Route to Pharmacy Electronically, [facility]/pharmacy #[id number], 162, cm, 01/16/23 8:44:00 EST, Height, [...] 11 Refills, Maintenance, 03/20/23 15:48:00 EDT, Tablet, [facility]/pharmacy #[id number], Partial fill upon patient request if the prescription is for a schedule II opioid drug., 162, cm, 03/20/23 15:20:00 E... Start Date: 03/20/23 Status: Ordered lisinopril 40 mg oral tablet 1 tablet = 40 mg, By Mouth, Daily, # 30 tablet, 5 Refills, Maintenance, 09/09/23 15:45:00 EDT, [facility]/pharmacy #[id number], Partial fill upon patient request if [...] Stop 12/31/25 8:56:00 EST, 01/16/23 8:56:00 EST, Tablet,[facility]/pharmacy #[id number], 162, cm, 01/16/23 8:44:00 EST,... Start Date: 01/16/23 Stop Date: 12/31/25 Status: Ordered metoprolol 25 mg oral tablet, extended release 25 mg, 1, tablet, By Mouth, Daily, # 90 tablet, Refills 3, Tot. Refills 3, Maintenance, 09/09/23 15:34:00 EDT, Route to Pharmacy Electronically, [facility]/pharmacy #[id number], Partial fill upon patient request if the prescription is for a schedule II opioid drug... Start Date: 09/09/23 Status: Ordered phenytoin 100 mg oral capsule, extended release 2 capsule = 200 mg, By Mouth, 2 times a day, # 360 capsule, 11 Refills, 03/20/23 15:48:00 EDT, [facility]/pharmacy #[id number], 162, cm, 03/20/23 15:20:00 EDT, Height, 91, kg, 04/18/21 11:47:00 EDT, Dry Weight Start Date: 03/20/23 Status: Ordered Vitamin D3 50,000 intl units oral capsule 1 capsule = 1,250 mcg, By Mouth, Every week, # 12 capsule, 0 Refills, Maintenance, 03/20/23 15:45:00 EDT, Capsule, [facility]/pharmacy #[id number], Partial fill upon patient request if [...] Care Nurse Name: Ping Jimenez MD Position: [facility] Resident Member Role: PCP Address: Address: [address] [place] [address] [place] [address]- Care Team Related Persons Name: ALETA KATE Address: home [address] [address]
--- OUTSIDE RECORDS SUMMARY | 2024-07-13 19:35 | XMS_ITS | Continuity of Care Document ---
Author Organization [facility] Address [address] [place] [address]- Care Team Providers Care Rubber Engraver Name Role Phone Henry RAMOS, Christi Gracia Primary Care Physici an Encounter [facility] Date(s): 10/01/20 - 10/31/20 [facility] [address] [place] [address]- Allergies, Adverse Reactions, Alerts Substance Reaction Severity [...] 4 02/16/09 Given 1Result Comment: [08/05/2013] Flulaval [id number] 2Admin Note: VIS 7-12 3Admin Note: vis given 4Admin Note: vis given Medications chlorthalidone 50 mg oral tablet 1 tablet = 50 mg, By Mouth, Daily, # 90 tablet, 0 Refills, Maintenance, 10/01/20 19:40:00 EST, Tablet, [id number], 167, cm, 02/02/20 9:57:00 EDT, Height, 96.6, kg, 02/02/20 9:57:00 EDT, Dry Weight Start Date: 10/01/20 Status: Ordered CPAP sent to [facility] CPAP sent to [facility], See Instructions, # 1 units, Refills 0, Tot. Refills 0, Maintenance, CPAP script faxed to [facility], 01/12/19 11:44:52 EST, Compound Start Date: 01/12/19 Status: Ordered lisinopril 40 mg oral tablet 1 tablet = 40 mg, By Mouth, Daily, # 90 tablet, 0 Refills, Maintenance, 10/01/20 19:41:00 EST, Tablet, [facility]/pharmacy #[id number], 167, cm, 02/02/20 9:57:00 EDT, Height, 96.6, kg, 02/02/20 9:57:00 EDT, Dry Weight Start Date: 10/01/20 Status: Ordered phenytoin 100 mg oral capsule, extended release 2 capsule = 200 mg, By Mouth, 2 times a day, # 360 capsule, 1 Refills, Maintenance, 10/01/20 19:41:00 EST, CR Capsule, [facility]/pharmacy #[id number], 167, cm, 02/02/20 9:57:00 EDT, [...]
--- OUTSIDE RECORDS SUMMARY | 2024-07-13 19:35 | XMS_ITS | Continuity of Care Document ---
Author Organization [facility] Address [address] [place] [address]- Care Team Providers Care Orchard Worker Name Role Phone Ping iJmenez MD Primary Care Physician En[place] [facility] [place] Date(s): 09/23/23 - 10/23/23 [facility] [address] [place] [address] [place] Allergies, Adverse Reactions, Alerts No Known [...] 4 02/16/09 Given 1Result Comment: [08/05/2013] Flulaval [id number] 2Admin Note: VIS 7-12 3Admin Note: vis given 4Admin Note: vis given Medications chlorthalidone 25 mg oral tablet 25 mg, 1, tablet, By Mouth, Daily, # 30 tablet, Refills 5, Tot. Refills 5, Maintenance, 09/09/23 15:45:00 EDT, Route to Pharmacy Electronically, [facility]/pharmacy #[id number], Partial fill upon patient request if the prescription is for a schedule II opioid drug... Start Date: 09/09/23 Status: Ordered chlorthalidone 25 mg oral tablet 25 mg, 1, tablet, By Mouth, Daily, for 90 days, # 90 tablet, Refills 11, Tot. Refills 11, Hard Stop12/31/25 8:56:00 EST, 01/16/23 8:56:00 EST, Route to Pharmacy Electronically, [facility]/pharmacy #[id number], 162, cm, 01/16/23 8:44:00 EST, Height, 91, kg, 04/18/... Start Date: 01/16/23 Stop Date: 12/31/25 Status: Ordered CP[facility] sent to [facility], See Instructions, # 1 each, Refills 0, [...] 11 Refills, Maintenance, 03/20/23 15:48:00 EDT, Tablet, [facility]/pharmacy #[id number], Partial fill upon patient request if the prescription is for a schedule II opioid drug., 162, cm, 03/20/23 15:20:00 E... Start Date: 03/20/23 Status: Ordered lisinopril 40 mg oral tablet 1 tablet = 40 mg, By Mouth, Daily, # 30 tablet, 5 Refills, Maintenance, 09/09/23 15:45:00 EDT, [facility]/pharmacy #[id number], Partial fill upon patient request [...] Stop 12/31/25 8:56:00 EST, 01/16/23 8:56:00 EST, Tablet,[facility]/pharmacy #[id number], 162, cm, 01/16/23 8:44:00 EST,... Start Date: 01/16/23 Stop Date: 12/31/25 Status: Ordered metoprolol 25 mg oral tablet, extended release 25 mg, 1, tablet, By Mouth, Daily, # 90 tablet, Refills 3, Tot. Refills 3, Maintenance, 09/09/23 15:34:00 EDT, Route to Pharmacy Electronically, [facility]/pharmacy #[id number], Partial fill upon patient request if the prescription is for a schedule II opioid drug... Start Date: 09/09/23 Status: Ordered phenytoin 100 mg oral capsule, extended release 2 capsule = 200 mg, By Mouth, 2 times a day, # 360 capsule, 11 Refills, 03/20/23 15:48:00 EDT, [facility]/pharmacy #[id number], 162, cm, 03/20/23 15:20:00 EDT, Height, 91, kg, 04/18/21 11:47:00 EDT, Dry Weight Start Date: 03/20/23 Status: Ordered Vitamin D3 50,000 intl units oral capsule 1 capsule = 1,250 mcg, By Mouth, Every week, # 12 capsule, 0 Refills, Maintenance, 03/20/23 15:45:00 EDT, Capsule, [facility]/pharmacy #[id number], Partial fill upon patient request [...] HOSPITAL Resident Member Role: PCP Address: Address: [address] [place] [address] [place] [address]- Care Team Related Persons Name: ALETA KATE Address: home [address] [address]
--- OUTSIDE RECORDS SUMMARY | 2024-07-13 19:35 | XMS_ITS | Continuity of Care Document ---
Author Organization [facility] Address [address] [place] [address]- Care Team Providers Care Multi Share Program Coordinator Name Role Phone Ping Jimenez MD Primary Care Physician [place] [facility] [place] 11/27/21 [facility] [address] [place], [place] [address] Attending Physician: Osman Andrade MD Referring Physician: Ping iJmenez MD Allergies, Adverse Reactions, Alerts Substance Reaction [...] 4 02/16/09 Given 1Result Comment: [08/05/2013] Flulaval [id number] 2Admin Note: VIS 7-12 3Admin Note: vis [...] 0 Refills, Maintenance, 07/11/21 11:15:00 EDT, Tablet, [facility]/pharmacy #[id number], 162, cm, 04/18/21 11:47:00 EDT, Height, 91, kg, 04/18/21 11:47:00 EDT, Dry Weight Start Date: 07/11/21 Status: Ordered CPAP sent to [facility] CPAP sent to [facility], See Instructions, # 1 units, Refills 0, Tot. Refills 0, Maintenance, CPAP script faxed to [facility], 01/12/19 11:44:52 EST, Compound Start Date: 01/12/19 Status: Ordered lisinopril 40 mg oral tablet 1 tablet = 40 mg, By Mouth, Daily, Please see your PCP for a physical and obtain labwork (ordered),# 30 tablet, 0 Refills, Maintenance, 07/11/21 11:15:00 EDT, Tablet, [facility]/pharmacy #[id number], 162, cm, 04/18/21 11:47:00 EDT, Height, [...]
--- OUTSIDE RECORDS SUMMARY | 2024-07-13 19:35 | XMS_ITS | Continuity of Care Document ---
Author Organization [facility] Adult Medicine Address [address] [place] [address]- Care Team Providers Care Public Health Staff Nurse Name Role Phone Ping Jimenez MD Primary Care Physician [phone] Encounter [facility] Date(s): 04/01/24 - 05/01/24 [facility] Adult Medicine [address] [place] [address]- Encounter Diagnosis Tonic-clonic seizures(Discharge Diagnosis) - 04/01/24 Allergies, Adverse Reactions, Alerts No Known Allergies [...] 4 02/16/09 Given 1Result Comment: [08/05/2013] Flulaval [id number] 2Admin Note: VIS 7-12 3Admin Note: vis given 4Admin Note: vis given Medications chlorthalidone 25 mg oral tablet 25 mg, 1, tablet, By Mouth, Daily, # 90 tablet, Refills 1, Tot. Refills 1, Maintenance, 03/31/24 8:59:00 EDT, Route to Pharmacy Electronically, [facility]/pharmacy #[id number], Partial fill upon patient request if the prescription is for a schedule II opioid drug.... Start Date: 03/31/24 Status: Ordered chlorthalidone 25 mg oral tablet 25 mg, 1, tablet, By Mouth, Daily, for 90 days, # 90 tablet, Refills 11, Tot. Refills 11, Hard Stop12/31/25 8:56:00 EST, 01/16/23 8:56:00 EST, Route to Pharmacy Electronically, [facility]/pharmacy #[id number], 162, cm, 01/16/23 8:44:00 EST, Height, [...] 11 Refills, Maintenance, 03/20/23 15:48:00 EDT, Tablet, [facility]/pharmacy #[id number], Partial fill upon patient request if the prescription is for a schedule II opioid drug., 162, cm, 03/20/23 15:20:00 E... Start Date: 03/20/23 Status: Ordered lisinopril 40 mg oral tablet 1 tablet = 40 mg, By Mouth, Daily, # 90 tablet, 1 Refills, Maintenance, 03/31/24 8:59:00 EDT, [facility]/pharmacy #[id number], Partial fill upon patient request if [...] 50 drawn when he is not fasting. Diagnosis Diagnosis Type Effective Dates Health Status Cl inical Service Informant Tonic-clonic seizures Discharge Diagnosis 04/01/24 Non-Specified Social History Social History Type Response Smoking Status 5-9 cigarettes (betw een 1/4 to 1/2 pack)/day in last 30 days entered on: 08/08/22 Sex Male Patient Care team information Care Team Personnel Name: Julien Gunn RN Position: [facility] RN Member Role: Primary Care Nurse Name: Ping Jimenez MD Position: [facility] Resident Member Role: PCP Address: Address: [address] [place] [address] [place] [address]- Care Team Related Persons Name: ALETA KATE Address: home [address] [address]
--- OUTSIDE RECORDS SUMMARY | 2024-07-13 19:35 | XMS_ITS | Continuity of Care Document ---
Author Organization [facility] Adult Medicine Address [address] [place] [address]- Care Team Providers Care Sales Service Professional Name Role Phone Tony RAMOS, Ping Primary Care Physician [phone] Encounter [facility] Date(s): 03/13/22 - 04/20/22 [facility] Adult Medicine [address] [place], [place] [address] Attending Physician: Not on Staff, Attending [...] 4 02/16/09 Given 1Result Comment: [08/05/2013] Flulaval [id number] 2Admin Note: VIS 7-12 3Admin Note: vis [...] 0 Refills, Maintenance, 07/11/21 11:15:00 EDT, Tablet, [facility]/pharmacy #[id number], 162, cm, 04/18/21 11:47:00 EDT, Height, 91, kg, 04/18/21 11:47:00 EDT, Dry Weight Start Date: 07/11/21 Status: Ordered CPAP sent to [facility] CPAP sent to [facility], See Instructions, # 1 units, Refills 0, Tot. Refills 0, Maintenance, CPAP script faxed to [facility], 01/12/19 11:44:52 EST, Compound Start Date: 01/12/19 Status: Ordered lisinopril 40 mg oral tablet 1 tablet = 40 mg, By Mouth, Daily, Please see your PCP for a physical and obtain labwork (ordered),# 30 tablet, 0 Refills, Maintenance, 07/11/21 11:15:00 EDT, Tablet, [facility]/pharmacy #[id number], 162, cm, 04/18/21 11:47:00 EDT, Height, [...] A DAY, # 120 capsule, 0 Refills, [facility] STORE [id number], 162, cm, 02/12/22 15:09:00 EDT, Height, 91, kg, 04/18/21 11:47:00 EDT, Dry Weight Start Date: 03/12/22 Status: Ordered phenytoin 100 mg oral capsule, extended release 2 capsule, By Mouth, 2 times a day, # 360 capsule, 0 Refills, Maintenance, 11/06/21 13:41:00 EST, [facility]/pharmacy #[id number], 162, cm, 07/23/21 8:04:00 EDT, Height, [...]
--- OUTSIDE RECORDS SUMMARY | 2024-07-13 19:35 | XMS_ITS | Continuity of Care Document ---
Author Organization [facility] Adult Medicine Address [address] [place] [address]- Care Team Providers Care Chemical Processing Technician Name Role Phone Ping Jimenez MD Primary Care Physician [place] [facility] Date(s): 03/20/23 - 04/19/23 [facility] Adult Medicine [address] [place] [id number] Attending Physician: Admelliott, Talisha Admitting Physician: Admtr, Talisha Referring Physician: Admtr, Ar8 Allergies, Adverse Reactions, [...] 4 02/16/09 Given 1Result Comment: [08/05/2013] Flulaval [id number] 2Admin Note: VIS 7-12 3Admin Note: vis given 4Admin Note: vis given Medications chlorthalidone 25 mg oral tablet 25 mg, 1, tablet, By Mouth, Daily, for 90 days, # 90 tablet, Refills 11, Tot. Refills 11, Hard Stop12/31/25 8:56:00 EST, 01/16/23 8:56:00 EST, Route to Pharmacy Electronically, [facility]/pharmacy #[id number], 162, cm, 01/16/23 8:44:00 EST, Height, 91, kg, ... Start Date: 01/16/23 Stop Date: 12/31/25 Status: Ordered CPAP sent to [facility] CPAP sent to [facility], See Instructions, # 1 each, Refills 0, Tot. Refills 0, Maintenance, [facility] Dx: Obstructive Sleep Apnea ICD-10: G47.33 AutoCPAP 10-20 cm H2O with compliance, 01/16/23 9:17:00 EST, Compound Start Date: 01/16/23 Status: Ordered Keppra 500 mg oral tablet 1 tablet = 500 mg, By Mouth, 2 times a day, # 180 tablet, 11 Refills, Maintenance, 03/20/23 15:48:00 EDT, Tablet, [facility]/pharmacy #[id number], Partial fill upon patient request if [...] Stop 12/31/25 8:56:00 EST, 01/16/23 8:56:00 EST, Tablet,[facility]/pharmacy #[id number], 162, cm, 01/16/23 8:44:00 EST,... Start Date: 01/16/23 Stop Date: 12/31/25 Status: Ordered phenytoin 100 mg oral capsule, extended release 2 capsule = 200 mg, By Mouth, 2 times a day, # 360 capsule, 11 Refills, 03/20/23 15:48:00 EDT, [facility]/pharmacy #[id number], 162, cm, 03/20/23 15:20:00 EDT, Height, 91, kg, 04/18/21 11:47:00 EDT, Dry Weight Start Date: 03/20/23 Status: Ordered Vitamin D3 50,000 intl units oral capsule 1 capsule = 1,250 mcg, By Mouth, Every week, # 12 capsule, 0 Refills, Maintenance, 03/20/23 15:45:00 EDT, Capsule, [facility]/pharmacy #[id number], Partial fill upon patient request if the [...] Team Personnel Name: Julien Gunn RN Position: [facility] RN Member Role: Primary Care Nurse Name: Ping Jimenez MD Position: [facility] Resident Member Role: PCP Address: Address: [address] [place] [address] [place] [address]- Care Team Related Persons Name: ALETA KATE Address: home [address] [address]
[2024-07-13 19:36] LABS: MANUAL DIFF FLAG NO
--- OUTSIDE RECORDS SUMMARY | 2024-07-13 19:36 | XMS_ITS | Continuity of Care Document ---
Author Organization [facility] ter Address [address] [place] [id number]- Care Team Providers Care Livestock Haulier Name Role Phone Henry RAMOS, Christi Gracia Primary Care Physici an Encounter [facility] Date(s): 01/13/20 - 03/10/[address] [address]- [facility] Attending Physician: Ramirez Ryan MD Admitting Physician: Ramirez Ryan MD Allergies, Adverse Reactions, Alerts Substance Reaction [...] 4 02/16/09 Given 1Result Comment: [08/05/2013] Flulaval [id number] 2Admin Note: VIS - 3Admin Note: vis given 4Admin Note: vis given Medications chlorthalidone 50 mg oral tablet 1 tablet = 50 mg, By Mouth, Daily, # 90 tablet, 3 Refills, Maintenance, 05/10/19 9:54:38 EDT, Tablet Start Date: 05/10/19 Status: Ordered CPAP sent to [facility] CPAP sent to [facility], See Instructions, # 1 units, Refills 0, Tot. Refills 0, Maintenance, CPAP script faxed to [facility], 01/12/19 11:44:52 EST, Compound Start Date: 01/12/19 [...] Refills, Maintenance, 02/08/20 10:24:00 EDT, CR Capsule, [facility]/pharmacy #[id number], 167, cm, 02/02/20 9:57:00 EDT, Height, 96.6, kg, 02/02/20 9:57:00 EDT, Dry Weight Start Date: 02/08/20 Status: Ordered Problem List Condition Effective Dates Status Health Status Inform ant H/O polycythemia +tobacco(Confirmed) Active Hypertension(Confirmed) Active Obstructive sleep apnea severe(Confirmed) 2019 Active Tonic-clonic seizures(Confirmed) Active Varicose veins(Confirmed) Active Social History Social History Type Response Smoking Status Current some day [facility] entered on: 08/09/15 Sex Male
--- OUTSIDE RECORDS SUMMARY | 2024-07-13 19:36 | XMS_ITS | Continuity of Care Document ---
Author Organization [facility] Adult Medicine Address [address] [place] [address]- Care Team Providers Care Showroom Consultant Name Role Phone Tony RAMOS, Ping Primary Care Physician [phone] Encounter [facility] Date(s): 11/25/21 - 12/25/21 [facility] Adult Medicine [address] [place], [place] [address] Allergies, Adverse Reactions, Alerts No [...] 4 02/16/09 Given 1Result Comment: [08/05/2013] Flulaval [id number] 2Admin Note: VIS -12 3Admin Note: vis [...] Date: 07/11/21 Status: Ordered CPAP sent to [facility] CPAP sent to [facility], See Instructions, # 1 units, Refills 0, Tot. Refills 0, Maintenance, CPAP script faxed to [facility], 01/12/19 11:44:52 EST, Compound Start [...]
--- OUTSIDE RECORDS SUMMARY | 2024-07-13 19:36 | XMS_ITS | Continuity of Care Document ---
Author Organization [facility] Adult Medicine Address [address] [place] [address]- Care Team Providers Care Freight Air Brake Fitter Name Role Phone Ping Jimenez MD Primary Care Physician [place] [facility] Date(s): 10/21/23 - 11/20/23 [facility] Adult Medicine [address] [place] [address]- Attending Physician: Talisha Wyman Admitting Physician: Talisha [...] 4 02/16/09 Given 1Result Comment: [08/05/2013] Flulaval [id number] 2Admin Note: VIS 7-12 3Admin Note: vis given 4Admin Note: vis given Medications chlorthalidone 25 mg oral tablet 25 mg, 1, tablet, By Mouth, Daily, # 30 tablet, Refills 5, Tot. Refills 5, Maintenance, 09/09/23 15:45:00 EDT, Route to Pharmacy Electronically, [facility]/pharmacy #[id number], Partial fill upon patient request if the prescription is for a schedule II opioid drug... Start Date: 09/09/23 Status: Ordered chlorthalidone 25 mg oral tablet 25 mg, 1, tablet, By Mouth, Daily, for 90 days, # 90 tablet, Refills 11, Tot. Refills 11, Hard Stop12/31/25 8:56:00 EST, 01/16/23 8:56:00 EST, Route to Pharmacy Electronically, [facility]/pharmacy #[id number], 162, cm, 01/16/23 8:44:00 [...] 11 Refills, Maintenance, 03/20/23 15:48:00 EDT, Tablet, [facility]/pharmacy #[id number], Partial fill upon patient request if the prescription is for a schedule II opioid drug., 162, cm, 03/20/23 15:20:00 E... Start Date: 03/20/23 Status: Ordered lisinopril 40 mg oral tablet 1 tablet = 40 mg, By Mouth, Daily, # 30 tablet, 5 Refills, Maintenance, 09/09/23 15:45:00 EDT, [facility]/pharmacy #[id number], Partial fill upon patient request [...] Team Personnel Name: Julien Gunn RN Position: [facility] RN Member Role: Primary Care Nurse Name: Ping Jimenez MD Position: [facility] Resident Member Role: PCP Address: Address: [address] [place] [address] [place] [address]- Care Team Related Persons Name: ALETA KATE Address: home [address] [address]
--- OUTSIDE RECORDS SUMMARY | 2024-07-13 19:36 | XMS_ITS | Continuity of Care Document ---
Author Organization [facility] Adult Medicine Address [address] [place] [address]- Care Team Providers Care Needle Loom Tender Name Role Phone Ping Jimenez MD Primary Care Physician Encounter [facility] Date(s): 03/31/24 - 04/30/24 [facility] Adult Medicine [address] [place], [place] [phone] Allergies, Adverse Reactions, Alerts No Known Allergies [...] 4 02/16/09 Given 1Result Comment: [08/05/2013] Flulaval [id number] 2Admin Note: VIS 7-12 3Admin Note: vis given 4Admin Note: vis given Medications chlorthalidone 25 mg oral tablet 25 mg, 1, tablet, By Mouth, Daily, # 90 tablet, Refills 1, Tot. Refills 1, Maintenance, 03/31/24 8:59:00 EDT, Route to Pharmacy Electronically, [facility]/pharmacy #[id number], Partial fill upon patient request if the prescription is for a schedule II opioid drug.... Start Date: 03/31/24 Status: Ordered chlorthalidone 25 mg oral tablet 25 mg, 1, tablet, By Mouth, Daily, for 90 days, # 90 tablet, Refills 11, Tot. Refills 11, Hard Stop12/31/25 8:56:00 EST, 01/16/23 8:56:00 EST, Route to Pharmacy Electronically, [facility]/pharmacy #[id number], 162, cm, 01/16/23 8:44:00 EST, [...] 11 Refills, Maintenance, 03/20/23 15:48:00 EDT, Tablet, [facility]/pharmacy #[id number], Partial fill upon patient request if the prescription is for a schedule II opioid drug., 162, cm, 03/20/23 15:20:00 E... Start Date: 03/20/23 Status: Ordered lisinopril 40 mg oral tablet 1 tablet = 40 mg, By Mouth, Daily, # 90 tablet, 1 Refills, Maintenance, 03/31/24 8:59:00 EDT, [facility]/pharmacy #[id number], Partial fill upon patient request [...] Stop 12/31/25 8:56:00 EST, 01/16/23 8:56:00 EST, Tablet,[facility]/pharmacy #[id number], 162, cm, 01/16/23 8:44:00 EST,... [...] Care Nurse Name: Ping Jimenez MD Position: [facility] Resident Member Role: PCP Address: Address: [address] [place] [address] [place] [address]- Care Team Related Persons Name: HUMBLE ALETA Address: home [address] [address]
--- OUTSIDE RECORDS SUMMARY | 2024-07-13 19:36 | XMS_ITS | Continuity of Care Document ---
Author Organization [facility] Adult Medicine Address [address] [place] [address]- Care Team Providers Care Quality Control Head Name Role Phone Ping Jimenez MD Primary Care Physician [phone] [place] [facility] [place](s): 11/11/21 - 01/19/22 [facility] Adult Medicine [address] [place], [place] [address] Attending Physician: Walker Mortensen MD Admitting Physician: [...] 4 02/16/09 Given 1Result Comment: [08/05/2013] Flulaval [id number] 2Admin Note: VIS 7-12 3Admin Note: vis [...] 0 Refills, Maintenance, 07/11/21 11:15:00 EDT, Tablet, [facility]/pharmacy #[id number], 162, cm, 04/18/21 11:47:00 EDT, Height, 91, kg, 04/18/21 11:47:00 EDT, Dry Weight Start Date: 07/11/21 Status: Ordered CPAP sent to [facility] CPAP sent to [facility], See Instructions, # 1 units, Refills 0, Tot. Refills 0, Maintenance, CPAP script faxed to [facility], 01/12/19 11:44:52 EST, Compound Start Date: 01/12/19 Status: Ordered lisinopril 40 mg oral tablet 1 tablet = 40 mg, By Mouth, Daily, Please see your PCP for a physical and obtain labwork (ordered),# 30 tablet, 0 Refills, Maintenance, 07/11/21 11:15:00 EDT, Tablet, [facility]/pharmacy #[id number], 162, cm, 04/18/21 11:47:00 EDT, Height, [...]
--- OUTSIDE RECORDS SUMMARY | 2024-07-13 19:36 | XMS_ITS | Continuity of Care Document ---
Author Organization [facility] ter Address [address] [place] [address]- Care Team Providers Care Customs Verifier Name Role Phone Ping Jimenez MD Primary Care Physician Encounter [facility] Date(s): 09/22/23 - 09/22/[address] [address] Discharge Disposition: A-D/C Home Attending Physician: Debbie Whiting MD Admitting Physician: Debbie Whiting MD Referring Physician: Debbie Whiting MD Allergies, Adverse Reactions, Alerts No Known [...] 4 02/16/09 Given 1Result Comment: [08/05/2013] Flulaval [id number] 2Admin Note: VIS 7-12 3Admin Note: vis given 4Admin Note: vis given Medications chlorthalidone 25 mg oral tablet 25 mg, 1, tablet, By Mouth, Daily, # 30 tablet, Refills 5, Tot. Refills 5, Maintenance, 09/09/23 15:45:00 EDT, Route to Pharmacy Electronically, [facility]/pharmacy #[id number], Partial fill upon patient request if the prescription is for a schedule II opioid drug... Start Date: 09/09/23 Status: Ordered chlorthalidone 25 mg oral tablet 25 mg, 1, tablet, By Mouth, Daily, for 90 days, # 90 tablet, Refills 11, Tot. Refills 11, Hard Stop12/31/25 8:56:00 EST, 01/16/23 8:56:00 EST, Route to Pharmacy Electronically, [facility]/pharmacy #[id number], 162, cm, 01/16/23 8:44:00 [...] Refills, Maintenance, 03/20/23 15:48:00 EDT, Tablet, [facility]/pharmacy #[id number], Partial fill upon patient request if the prescription is for a schedule II opioid drug., 162, cm, 03/20/23 15:20:00 E... Start Date: 03/20/23 Status: Ordered lisinopril 40 mg oral tablet 1 tablet = 40 mg, By Mouth, Daily, # 30 tablet, 5 Refills, Maintenance, 09/09/23 15:45:00 EDT, [facility]/pharmacy #[id number], Partial fill upon patient [...] Stop 12/31/25 8:56:00 EST, 01/16/23 8:56:00 EST, Tablet,[facility]/pharmacy #[id number], 162, cm, 01/16/23 8:44:00 EST,... [...] 50 drawn when he is not fasting. Procedures Procedure Date Related Diagnosis Body Site Status Colonoscopy 09/22/23 Completed Vital Signs Most recent to oldest [Reference Range]: 1 2 3 Height 162.6 cm (09/22/23 8:45 AM) Weight 94.3 kg (09/22/23 8:45 AM) Oxygen Saturation [94-100 %] 98 % (09/22/23 9:55 AM) 97 % (09/22/23 9:45 AM) 99 % (09/22/23 8:45 AM) Pulse Rate [55-90 bpm] 68 bpm (09/22/23 8:45 AM) Body Mass Index [18.5-24.99 kg/m2] 35.67 kg/m2 *>HHI* (09/22/23 8:45 AM) Blood Pressure [90-138/55-84 mm Hg] 155/91mm Hg *H* (09/22/23 9:55 AM) 135/99mm Hg (09/22/23 9:45 AM) 151/123mm Hg *H* (09/22/23 8:45 AM) Respiratory Rate [16-30 br/min] 18 br/min (09/22/23 9:55 AM) 18 br/min (09/22/23 9:45 AM) 16 br/min (09/22/23 8:45 AM) Temperature [96.8-100.4 DegF] 98.0 DegF (09/22/23 8:45 AM) Mode of Delivery (Oxygen) Room air (09/22/23 9:55 AM) Room air (09/22/23 9:45 AM) Room air (09/22/23 8:45 AM) Blood pressure sites Arm, left (09/22/23 9:55 AM) Arm, left (09/22/23 9:45 AM) Arm, left (09/22/23 8:45 AM) Temperature Route Temporal (09/22/23 8:45 AM) Weight Obtained Via Patient/family state d (09/22/23 8:45 AM) Social History Social History Type Response Smoking Status 5-9 cigarettes (betw een 11/26 to /2 pack)/day in last 30 days entered on: 08/08/22 Sex Male Note * Dinorah Reddy RN: PERFORM Event Display: Discharge/Transfer Note Hospital Authored Date: [id number] Nursing Discharge Note Entered On: 09/22/2023 9:45 EDT Performed On: 09/22/2023 9:44 EDT by Dinorah Reddy RN Nursing Discharge Note 2 Discharge Time : 09/22/2023 10:06 EDT Dinorah Reddy RN - 09/22/2023 10:06 EDT Discharge Level of Care at Discharge : Home/Half-Way/Foster Care Patient Left Unit Via : Wheelchair Patient Accompanied Off Unit with : Responsible adult DC Instructions Provided & Signed by Pt : Yes Patient Understands D/C Instructions : Yes Patient Instructions Discharge Signed : Yes Did Pt have Specialty Bed or Wound Vac : No Dinorah Reddy RN - 09/22/2023 9:44 EDT * Dinorah Reddy RN: PERFORM Event Display: Patient Education/Instruction Authored Date: [id number] Surgery Adult Discharge Instructions [place] [id number] Name: STEVIE NAVARRO : 1975?? Visit: 09/22/2023 08:06?? Current Date: 09/22/2023 09:45 ?? Account: [id number]?? Surgery Discharge Instructions We would like to thank you for allowing us to assist you with your healthcare needs. The following includes patient education materials and information regarding your injury/illness. Our entire staffstrives to provide an excellent experience for our patients and their families. PLEASE ENSURE YOU FOLLOW-UP PER THE INSTRUCTIONS BELOW! ?? YOUR OPINION IS IMPORTANT TO US! Please complete the survey you may receive by mail or email. Your feedback will be used to make improvements to the healthcare experiences of our patients and their families. Surveys are administered by [employer] ?? If further treatment with your primary care physician or another doctor is recommended, it is important for you to keep the appointment. Call your primary care physician or return to the Emergency Department immediately if your condition worsens, fails to improve, or new symptoms develop. If you need to find a doctor, you can call [facility] Link for a referral at [phone] or toll free at [phone] ([phone]) or log in to [email or web address].. ?? [facility], in keeping with [facility] guidance, no longer requires face masks for staff, patientsor visitors in most situations. Similiar to time spent indoors at other locations, there is the chance that you were exposed to repiratory viruses during your time with us (such as flu or COVID-19). If you develop symptoms concerning for a viral respiratory infection, please seek testing (and treatment if indicated) from your medical provider or home test kit. ?? You can view and manage your care through the patient portal or by using a health care rosanna of your choosing. [employer] is a website that allows you to securely view your medical information including your hospital discharge summary, office visit summaries, medications and follow-up visits. You can also request appointments, renew medications, and request access to your medical information using a health care rosanna of your choosing, or just ask a question. You are entitled to know the individuals who participated in your treatment. This information is available within your medical record and will be provided upon your request. You can enroll at [email or web address] or register d uring your next office visit. You have been discharged from [facility], Patient Care Unit: ENDO??. If you have any questions regarding these instructions after you leave, please call us and we will be happy to assist you. [facility] Your Care Team Attending Physician Debbie Whiting MD?? Discharging Providers Debbie Whiting MD Reason for Admission SCREENING COLONOSCOPY Primary Care Provider Ping Jimenez MD? Advance Directive Health Care Proxy on File No Patient refuses to discuss What to do next Instructions From Your Doctor ?? Orders?? Daystay Protocol, ??09/22/23 8:36:00 EDT?? Scheduled Follow-Up Appointments Thursday 9:50 AM EST ?? With: Bismark Oconnor MD Where: [address] [address] [place] [address]- Status: Pending Thursday 3:20 PM EST ?? With: Diego Brooks DO Where: [address] [address]- Status: Pending You Need to Schedule the Following Appointments Follow Up with??follow up with your PCP Follow Up with??Ping Jimenez When:??In 0 days Where: [address] [place] [address]- Business (1) Discharge Medications STEVIE NAVARRO :1975 Visit Date:09/22/2023 Medications: Please continue your medications until treatment is completed or stopped by your provider. You may resume your daily prescription medications. Discuss any questions related to medications with your provider. What How Much When Why Instructions Next Dose Unchanged Chlorthalidone (chlorthalidone 25 mg oral tablet) 1 tab(s) Oral Daily Duration: 90 Days Unchanged Chlorthalidone (chlorthalidone 25 mg oral tablet) 1 tab(s) Oral Daily Unchanged Cholecalciferol (Vitamin D3 50,000 intl units oral capsule) 1 capsule Oral Every week Unchanged Durable Medical Equipment (CPAP sent to [facility]) See instructions CPAP script faxed to [facility] Dx: Obstructive Sleep Apnea ICD-10: G47.33 AutoCPAP 10-20 cm H2O with compliance ?? Unchanged Durable Medical Equipment (Home blood pressure monitor) See instructions ICD10; I10 To measure BP once per day Lifetime ?? Unchanged levETIRAcetam (Keppra 500 mg oral tablet) 1 tab(s) Oral Twice a day Tonic-clonic seizures Unchanged Lisinopril (lisinopril 40 mg oral tablet) 1 tab(s) Oral Daily Unchanged Lisinopril (lisinopril 40 mg oral tablet) 1 tab(s) Oral Daily Duration: 90 Days Please see your PCP for a physical and obtain labwork (ordered) ?? Unchanged Metoprolol (metoprolol 25 mg oral tablet, extended release) 1 tab(s) Oral Daily Unchanged Phenytoin (phenytoin 100 mg oral capsule, extended release) 2 capsule Oral Twice a day Tonic-clonic seizures Allergies (NKA means No Known Allergies) NKA Education Materials Below is the list of Educational Leaflet Providered with your Discharge Instructions. Surgery Medical Daystay Surgical Overnight Discharge Instructions?? Hemorrhoids Discharge Instructions?? Colon Polypectomy Discharge Instructions?? Valuables and Belongings I fully understand and agree that [facility] accepts no responsibility for all my personal property including clothing, toilet articles, radios, jewelry, dentures, hearing aids, rings, money, or any other property that is in my possession or is brought to me after admission. I understand certain valuables may be placed in a hospital safe for a short period of time. I understand that the hospital is not liable for loss or damage due to accident, fire, or other natural occurrence while said property is in the safe. I accept full responsibility for any personal property that I keep with me, and will not hold the hospital responsible in case of loss or disappearance. I acknowledge that i have been encouraged to send valuables and belongings home. ?? Review of Valuable and Belonging List: With patient Date for Pt to Sign Valuables/Belongings: 09/22/23 08:45:00 ?? Valuables & Belongings ?? Clothes Electronic devices Jewelry Monetary Items Personal devices Miscellaneous Medications (Valuables) Valuables at Bedside Pants, Shirt, Shoes, Undergarments ? Valuables Sent Home ? Valuables Sent to Security ? Other Discharge Information ? Case Management Discharge Plan?? Discharge Plan?? Discharge Level of Care at Discharge: Home/Half-Way/Foster Care ?? Pulmonary Rehab Status?? Pulmonary Rehab Discharge Status?? Respiratory Rate: 16 br/min ? Common Emergency Awareness Tips IS IT A STROKE? Act FAST and Check for these signs: FACE Does the face look uneven? ARM Does one arm drift down? SPEECH Does their speech sound strange? TIME Call at any sign of stroke ?? Heart Attack Signs Chest discomfort: Most heart attacks involve discomfort in the center of the chest and lasts more than a few minutes, or goes away and comes back. It can feel like uncomfortable pressure, squeezing, fullness or pain. Discomfort in upper body: Symptoms can include pain or discomfort in one or both arms, back, neck, jaw or stomach. Shortness of breath: With or without discomfort. Other signs: Breaking out in a cold sweat, nausea, or lightheaded. Remember, MINUTES DO MATTER. If you experience any of these heart attack warning signs, call to get immediate medical attention! ?? Smoking can increase your chances of developing chronic health problems and can cause harmful effects to other family members in your house. If you smoke, you are strongly encouraged to quit. Please call [facility] [employer] Link at [phone] or [phone] Gu[place] del Día ([phone]) or log in to [email or web address] for referrals to smoking cessation programs. ?? The National Suicide Prevention Hotline is available 15/06 if you or someone you know needs to find a reason to keep living. By calling 6-501-577-[employer] (4795) you'll be connected to a skilled, trained counselor at a crisis center in your area. SURGERY DISCHARGE INSTRUCTIONS SIGNATURE PAGE STEVIE NAVARRO Location:[facility] Registration Date and Time:09/22/2023 08:06 EDT Primary Care Physician: Tony RAMOS, iPng, Attending Physician: Henok RAMOS, Debbie, I STEVIE NAVARRO, have received the above patient education materials/instructions and have verbalized understanding. If ambulance or transport services are being used I further acknowledge being given a choice of service. ?? If you need to contact me, please call me at this number: . Patient/Tmd Teacher Name: Patient/Tmd Teacher Signature: Relationship to Patient: Witness Name/Signature: Date: * Dinorah Reddy RN: PERFORM, SIGN, VERIFY Event Display: Patient Education Handout Authored Date: [id number] * Dinorah Reddy RN: PERFORM Event Display: Patient Education Leaflets Authored Date: [id number] Surgery Medical Daystay Surgical Overnight Discharge Instructions ?? 295 Medical Daystay/Surgical Overnight Discharge Instructions ? Since your coordination and judgment may be altered by medication and/or anesthesia, a responsible adult must drive you home from the hospital. ? If you have received medication for pain or sedation while under our care, you should not drive, operate machinery, drink alcohol, or sign any legal documents for 24 hours.?? You should have someone with you at home tonight. ? Remain at home the day of discharge.?? You may be up and about unless otherwise instructed by your physician. ? You may resume your daily prescription medication schedule.?? Any depressant medication should be avoided for 24 hours unless otherwise instructed by your surgeon or anesthesiologist. ? Call your physician for a follow-up appointment.? If you experience unusual or severe pain not relied by your pain medication, excessive bleedingor drainage, persistent nausea and vomiting, excessive swelling or redness, foul odor from incisionsite or fever over 100.6F, you need to call your physician. ? A follow-up phone call by a nurse will be made the day after your procedure.?? If you have stayed with us over night, you will not be receiving a follow-up phone call. ? Nausea and vomiting are a common side effect of prescription pain medication.?? We recommend that pills are not taken on an empty stomach.?? While taking any prescription pain medication you should not drive or drink alcohol. ? * Dinorah Reddy RN: PERFORM Event Display: Patient Education Leaflets Authored Date: [id number] Hemorrhoids Discharge Instructions ?? 672 ??Hemorrhoids Discharge Instructions ??You must carefully read the Consumer Information Use and Disclaimer below in order to understand and correctly use this information?? About this topic Hemorrhoids are swollen veins in the rectum. Your rectum is where stool leaves your body. You may be able to see or feel your hemorrhoids outside of your body, but some hemorrhoids are inside of yourrectum and cannot be seen. Hemorrhoids can cause itching, pain, and bleeding. Being constipated or having hard stools can make your hemorrhoids worse.?? What care is needed at home? Ask your doctor what you need to do when you go home. Make sure??you ask questions if you do not understand what the doctor says. This??way you will know what you need to do. ??? Soak your bottomin a few inches of warm water for 10 to 15 minutes??at a time. You can do this 2 to 3 times each day. Do not add soap,??bubble bath, or anything to the water. ??? Use gmwt-xel-hwfdweb medicines to treat your hemorrhoids. These??include ointments and creams to help with pain and swelling. You can??also use a product like witch antoine to help dry out the skin in the area. ??? To help with constipation: ??? Use stool softeners when needed. ??? Eat high-fiber foods. These include whole grains, fruits, and??vegetables. ??? Drink plenty of water and other fluids each day. This helps to??keep your stools soft. ??? Set a regular schedule to try and have a bowel movement. Do??not ignore the urge to go to the bathroom. Don???t hold it in. ??? Give yourself plenty of time to have a bowel movement, but do not linger on the toilet either, by sitting and reading for a long time. ??? Do mild exercise each day like taking a walk. ??? Avoid heavy lifting or straining while the hemorrhoid is healing. ?? What follow-up care is needed? If your problem does not get better, other care may be needed. Your doctor may ask you to make visits to the office to check on your progress. Be sure to keep these visits.?? What drugs may be needed? The doctor may order drugs to: ??? Help with pain and swelling ??? Ease itching ??? Soften stools ?? Will physical activity be limited? Working out can help with digestion. It might help keep you from having hard stools. Ask your doctor about the best kind of exercise for you. ?? What problems could happen? You may have very bad bleeding. ??? Sometimes, treatments do not work. Some hemorrhoids are very??large. You might need surgery for either of these. ?? When do I need to call the doctor? You have a lot of bleeding from your rectum. ??? Your bowel movement looks like tar. ??? You are not able to pass stool because of pain from your??hemorrhoids. ??? Your pain gets worse and is nothelped by nztz-yfv-wkeeqcn??medicines, warm water, or your home care. ??? You have a fever of 100.4??F (38??C) or higher. ?? Teach Back: Helping You Understand The Teach Back Method helps you understand the information we are giving you. After you talk with the staff, tell them in your own words what you learned. This helps to make sure the staff has described each thing clearly. It also helps to explain things that may have been confusing. Before going home, make sure you can do these: ??? I can tell you about my condition. ??? I can tell you what may help ease my pain. ??? I can tell you what I will do if I have blood in my rectum. Where can I learn more?[employer]https://familydoctor.or g/condition/hemorrhoids/National Digestive Disease Information Clearinghousehttps://www.niddk.nih.go v/health-information/digestive-diseases/hemorrhoids/definition-factsLast Reviewed Owmn5322-88-59Wuqztvud Information Use and Disclaimer:This generalized information is a limited summary of diagnosis,treatment, and/or medication information. It is not meant to be comprehensive and should be used asa tool to help the user understand and/or assess potential diagnostic and treatment options. It does NOT include all information about conditions, treatments, medications, side effects, or risks thatmay apply to a specific patient. It is not intended to be medical advice or a substitute for the medical advice, diagnosis, or treatment of a health care provider based on the health care provider's examination and assessment of a patient???s specific and unique circumstances. Patients must speak with a health care provider for complete information about their health, medical questions, and treatment options, including any risks or benefits regarding use of medications. This information does not endorse any treatments or medications as safe, effective, or approved for treating a specific patient. [employer] and its affiliates disclaim any warranty or liability relating to this information or the use thereof. The use of this information is governed by the Terms of Use, available at??htt ps://www.wolterskluwer.com/en/know/gwlnbaug-yncwtafdsihnp-jnkziHjfb Updated 01/15/22? * Dinorah Reddy RN: PERFORM Event Display: Patient Education Leaflets Authored Date: [id number] Colon Polypectomy Discharge Instructions ?? 682 ?? Colon Polypectomy Discharge Instructions ??You must carefully read the Consumer Information Use and Disclaimer below in order to understand and correctly use this information??About this topicThe colon is also called the large intestine. It is a long, hollow tube at the end of your digestive tract. It absorbs water from solid waste and changes it from liquid to a solid bowel movement.??A colon polyp is a growth of extra tissue that is not normally in your colon. Colon polyps do not often cause any signs. Most colon polyps are not cancer, but some polyps may turn into cancer. The doctor takes the polyps out during a procedure called a colonoscopy and sends them to the lab for a check to make sure there is no cancer.??You may have a colon polyp or multiple polyps removed. The doctor will send them to the lab to see what type they are. If a polyp is very large, it may need to be removed by surgery.??What care is needed at home? Ask your doctor what you need to do when you go home. Make sure??you ask questions if you do not understand what the doctor says. ??? Do not drive for 24 hours after a colonoscopy. ??? Take your drugs as ordered by your doctor. ??? Go back to your normaldiet unless your doctor has told you to make? some changes in your diet. ??? Rest ??What follow-up care is needed? Your doctor may ask you to make visits to the office to check on your??progress. Be sure to keep these visits. ??? Your doctor may suggest you get tested regularly. People with colon??polyps need to have a colonoscopy regularly to check for the growth??of new polyps. ??? Some polyps may not be removed, and more surgery may be needed. ??? The results of the polyp testing will be given to you at one of these??visits. ??What drugs may be needed?The doctor may order drugs to: ??? Prevent hard stools ??? Help with pain ??? Reduce your risk of colon polyps or colon cancer ??Will physical activity be limited?You may feel sleepy after the colonoscopy. Try to get some rest.??What can be done to prevent this health problem? Have regular colonoscopies.? Eat foods high in fiber. ??? Eat foods low in fat. ??? Limit your intake of beer, wine, and mixed drinks (alcohol). ??? Ask your doctor or dietitian for a diet that is right for you. Include??calcium in your diet. Good sources of calcium include milk, cheese,??and yogurt. ??When do I need to call the doctor? Signs of infection. These include a fever of 100.4??F (38??C) or higher,??chills, and anal itching or pain. ??? Bleeding from rectum that gets worse? Belly becomes swollen and sore ??? Upset stomach and throwing up continues after you return home ??? Not being able to move your bowels ??? Weight loss without trying ??? Blood in your stool ??Teach Back: Helping You UnderstandThe Teach Back Method helps you understand the information we are giving you. After you talk with the staff, tell them in your own words what you learned. This helps to make sure the staff has described each thing clearly. It also helps to explain things that mayhave been confusing. Before going home, make sure you can do these:? I can tell you about my co ndition. ??? I can tell you what changes I need to make with my diet. ??? I can tell you what I will do if my stomach is swollen, I have belly pain,??or there is blood in my stool. ??Where can I learn more?BetterHealthhttps://www.betterhealth.[place].gov.au/health/ConditionsAndTreatme nts/colonoscopyNHSh ttps://www.nhs.uk/conditions/bowel-polyps/UpToDatehttps://www.[employer].com/kylah nts/nopbd-mmvinc-bfpwdb-the-basics??Last Reviewed Hmvo2782-98-97Kvzmovoc Information Use and Disclaimer:This generalized information is a limited summary of diagnosis, treatment, and/or medication information. It is notmeant to be comprehensive and should be used as a tool to help the user understand and/or assess potential diagnostic and treatment options. It does NOT include all information about conditions, treatments, medications, side effects, or risks that may apply to a specific patient. It is not intendedto be medical advice or a substitute for the medical advice, diagnosis, or treatment of a health care provider based on the health care provider's examination and assessment of a patient???s specificand unique circumstances. Patients must speak with a health care provider for complete information about their health, medical questions, and treatment options, including any risks or benefits regarding use of medications. This information does not endorse any treatments or medications as safe, effective, or approved for treating a specific patient. [employer] and its affiliates disclaim any warranty or liability relating to this information or the use thereof. The use of this information is governed by the Terms of Use, available at??https://www.[facility].com/en/know/clinical-effectiveness- termsLast Updated 01/15/22? Patient Care team information Care Team Personnel Name: Julien Gunn RN Position: S RN Member Role: Primary Care Nurse Name: Ping Jimenez MD Position: [facility] Resident Member Role: PCP Address: Address: [address] [place] [address]- Care Team Related Persons Name: HUMBLE ALETA Address: home [address] [place] [id number]
--- OUTSIDE RECORDS SUMMARY | 2024-07-13 19:36 | XMS_ITS | Continuity of Care Document ---
Author Organization [facility] Address [address] [place] [address]- Care Team Providers Care Batt Machine Operator Name Role Phone Ping Jimenez MD Primary Care Physician [phone] Encounter [facility] [place] Date(s): 09/25/22 - 10/25/22 [facility] [address] [place] [address]- Attending Physician: Talisha Wyman Admitting Physician: Talisha [...] 4 02/16/09 Given 1Result Comment: [08/05/2013] Flulaval [id number] 2Admin Note: VIS 7-12 3Admin Note: vis given 4Admin Note: vis given Medications chlorthalidone 25 mg oral tablet 25 mg, 1, tablet, By Mouth, Daily, for 90 days, # 90 tablet, Refills 11, Tot. Refills 11, Hard Stop05/19/25 15:58:00 EDT, 06/04/22 15:58:00 EDT, Route to Pharmacy Electronically, [facility]/pharmacy #[id number],162, cm, 06/04/22 15:28:00 EDT, Height, 91, kg, ... Start Date: 06/04/22 Stop Date: 05/19/25 Status: Ordered chlorthalidone 25 mg oral tablet 25 mg, 1, tablet, By Mouth, Daily, # 90 tablet, Refills 11, Tot. Refills 11, Maintenance, 05/19/25 15:58:00 EDT, Route to Pharmacy Electronically, [facility]/pharmacy #[id number], 162, cm, 06/04/22 15:28:00 EDT, Height, 91, kg, 04/18/21 11:47:00 EDT, Dry Weight Start Date: 05/19/25 Stop Date: 05/03/28 Status: Ordered CPAP sent to [facility] CPAP sent to [facility], See Instructions, # 1 units, Refills 0, Tot. Refills 0, Maintenance, CPAP script fax[facility] to [facility], 01/12/19 11:44:52 EST, Compound Start Date: 01/12/19 Status: Ordered Keppra 500 mg oral tablet 1 tablet = 500 mg, By Mouth, 2 times a day, # 60 tablet, 5 Refills, Maintenance, 06/04/22 16:59:00 EDT, Tablet, [facility]/pharmacy #[id number], Partial fill upon patient request [...] 05/19/25 15:56:00 EDT, 06/04/22 15:56:00 EDT, Tablet, [facility]/pharmacy #[id number], 162, cm, 06/04/22 15:28:00 ED... [...] Team Personnel Name: Julien Gunn RN Position: [facility] RN Member Role: Primary Care Nurse Name: Ping Jimenez MD Position: [facility] Resident Member Role: PCP Address: Address: [address] [place] [address]- Care Team Related Persons Name: ALETA KATE Address: home [address] [address]
--- OUTSIDE RECORDS SUMMARY | 2024-07-13 19:36 | XMS_ITS | Continuity of Care Document ---
Author Organization [facility] Address [address] [place] [address]- Care Team Providers Care Dictating Transcribing Machine Servicer Name Role Phone Ping Jimenez MD Primary Care Physician [place] [facility] [place] 12/27/23 [facility] [address] [place] [address]- Attending Physician: Walker Mortensen MD Admitting Physician: [...] 4 02/16/09 Given 1Result Comment: [08/05/2013] Flulaval [id number] 2Admin Note: VIS 7-12 3Admin Note: vis given 4Admin Note: vis given Medications chlorthalidone 25 mg oral tablet 25 mg, 1, tablet, By Mouth, Daily, # 30 tablet, Refills 5, Tot. Refills 5, Maintenance, 09/09/23 15:45:00 EDT, Route to Pharmacy Electronically, [facility]/pharmacy #[id number], Partial fill upon patient request if the prescription is for a schedule II opioid drug... Start Date: 09/09/23 Status: Ordered chlorthalidone 25 mg oral tablet 25 mg, 1, tablet, By Mouth, Daily, for 90 days, # 90 tablet, Refills 11, Tot. Refills 11, Hard Stop12/31/25 8:56:00 EST, 01/16/23 8:56:00 EST, Route to Pharmacy Electronically, [facility]/pharmacy #[id number], 162, cm, 01/16/23 8:44:00 EST, Height, 91, kg, 04/18/... Start Date: 01/16/23 Stop Date: 12/31/25 Status: Ordered [facility] to [facility], See Instructions, # 1 each, Refills 0, [...] 11 Refills, Maintenance, 03/20/23 15:48:00 EDT, Tablet, [facility]/pharmacy #[id number], Partial fill upon patient request if the prescription is for a schedule II opioid drug., 162, cm, 03/20/23 15:20:00 E... Start Date: 03/20/23 Status: Ordered lisinopril 40 mg oral tablet 1 tablet = 40 mg, By Mouth, Daily, # 30 tablet, 5 Refills, Maintenance, 09/09/23 15:45:00 EDT, [facility]/pharmacy #[id number], Partial fill upon [...] Team Personnel Name: Julien Gunn RN Position: [facility] RN Member Role: Primary Care Nurse Name: Ping Jimenez MD Position: [facility] Resident Member Role: PCP Address: Address: [address] [place] [address] [place] [address]- Care Team Related Persons Name: ALETA KATE Address: home [address] [place] [address]
--- OUTSIDE RECORDS SUMMARY | 2024-07-13 19:36 | XMS_ITS | Continuity of Care Document ---
Author Organization [facility] Address [address] [place] [address]- Care Team Providers Care Sheriffs Detective Name Role Phone Ping Jimenez MD Primary Care Physician Encounter [facility] [place] Date(s): 09/10/23 - 10/10/23 [facility] [address] [place], [place] [address] Attending Physician: Admtr, Ar8 Admitting Physician: Admtr, Ar8 Referring Physician: Admtr, [...] 4 02/16/09 Given 1Result Comment: [08/05/2013] Flulaval [id number] 2Admin Note: VIS 7-12 3Admin Note: vis given 4Admin Note: vis given Medications chlorthalidone 25 mg oral tablet 25 mg, 1, tablet, By Mouth, Daily, # 30 tablet, Refills 5, Tot. Refills 5, Maintenance, 09/09/23 15:45:00 EDT, Route to Pharmacy Electronically, [facility]/pharmacy #[id number], Partial fill upon patient request if the prescription is for a schedule II opioid drug... Start Date: 09/09/23 Status: Ordered chlorthalidone 25 mg oral tablet 25 mg, 1, tablet, By Mouth, Daily, for 90 days, # 90 tablet, Refills 11, Tot. Refills 11, Hard Stop12/31/25 8:56:00 EST, 01/16/23 8:56:00 EST, Route to Pharmacy Electronically, [facility]/pharmacy #[id number], 162, cm, 01/16/23 8:44:00 EST, [...] 11 Refills, Maintenance, 03/20/23 15:48:00 EDT, Tablet, [facility]/pharmacy #[id number], Partial fill upon patient request if the prescription is for a schedule II opioid drug., 162, cm, 03/20/23 15:20:00 E... Start Date: 03/20/23 Status: Ordered lisinopril 40 mg oral tablet 1 tablet = 40 mg, By Mouth, Daily, # 30 tablet, 5 Refills, Maintenance, 09/09/23 15:45:00 EDT, [facility]/pharmacy #[id number], Partial fill upon patient request [...] Stop 12/31/25 8:56:00 EST, 01/16/23 8:56:00 EST, Tablet,[facility]/pharmacy #[id number], 162, cm, 01/16/23 8:44:00 EST,... Start Date: 01/16/23 Stop Date: 12/31/25 Status: Ordered metoprolol 25 mg oral tablet, extended release 25 mg, 1, tablet, By Mouth, Daily, # 90 tablet, Refills 3, Tot. Refills 3, Maintenance, 09/09/23 15:34:00 EDT, Route to Pharmacy Electronically, [facility]/pharmacy #[id number], Partial fill upon patient request [...] 0 Refills, Maintenance, 03/20/23 15:45:00 EDT, Capsule, [facility]/pharmacy #[id number], Partial fill upon patient request [...] Name: Julien Gunn RN Position: [facility] RN Member Role: Primary Care Nurse Name: Ping Jimenez MD Position: [facility] Resident Member Role: PCP Address: Address: [address] [place] [address] [place] [address]- Care Team Related Persons Name: ALETA KATE Address: home [address] [address]
--- OUTSIDE RECORDS SUMMARY | 2024-07-13 19:36 | XMS_ITS | Continuity of Care Document ---
Author Organization [facility] ter Address [address] [place] [address]- Care Team Providers Care Equipment Monitor Phototypesetting Name Role Phone Henry RAMOS, Christi Gracia Primary Care Physici an Encounter [facility] [place] Date(s): 04/12/21 - 04/13/[address] [address]- Discharge Disposition: A-D/C Home Attending Physician: Audrey Bella MD Admitting Physician: Audrey Bella MD Referring Physician: Not on Staff, Referring MD Allergies, Adverse Reactions, Alerts Substance Reaction [...] 4 02/16/09 Given 1Result Comment: [08/05/2013] Flulaval [id number] 2Admin Note: VIS 7-12 3Admin Note: vis given 4Admin Note: vis given Medications chlorthalidone 50 mg oral tablet 1 tablet = 50 mg, By Mouth, Daily, # 90 tablet, 1 Refills, Maintenance, 12/27/20 18:41:00 EST, Tablet, [facility]/pharmacy #[id number], 167, cm, 02/02/20 9:57:00 EDT, Height, 96.6, kg, 02/02/20 9:57:00 EDT, Dry Weight Start Date: 12/27/20 Status: Ordered CPAP sent to [facility] CPAP sent to [facility], See Instructions, # 1 units, Refills 0, Tot. Refills 0, Maintenance, CP[facility] script faxed to [facility], 01/12/19 11:44:52 EST, Compound Start Date: 01/12/19 Status: Ordered Keflex monohydrate 500 mg oral capsule 1 capsule = 500 mg, By Mouth, 4 times a day, for 7 days, # 28 capsule, 0 Refills, Acute 04/19/21 23:31:00 EDT, 04/12/21 23:31:00 EDT, Capsule, [id number], Partial fill upon patient request ifthe prescription is for a schedule II opioid drug.,... Start Date: 04/12/21 Stop Date: 04/19/21 Status: Ordered Lidocaine 2% Inj 5 mL, Injection, Intradermal, Once, STAT, 04/12/21 21:12:00 EDT, Stop date 04/12/21 21:12:00 EDT Start Date: 04/12/21 Stop Date: 04/12/21 Status: Completed lisinopril 40 mg oral tablet 1 tablet = 40 mg, By Mouth, Daily, # 90 tablet, 1 Refills, Maintenance, 12/27/20 18:42:00 EST, Tablet, [id number], 167, cm, 02/02/20 [...] Active Tonic-clonic seizures(Confirmed) Active Varicose veins(Confirmed) Active Results Radiology Reports * Exam Date Time Procedure Performing Provider Status 04/12/21 2:47 PM Finger 2nd Right Hand [place]; Mitzi (Verified) Notes: (Finger 2nd Right Hand) Reason For Exam: Trauma RESULT: Finger 2nd Right Hand Finger 2nd Right Hand, 3 views Hx of Present Illness: Right index finger caught in punch press at work today with laceration. COMPARISON: None. FINDINGS: There is an weakly oriented mildly comminuted and displaced tuft fracture involving the distal phalanx of the index finger. There is moderate soft tissue edema and suspected partial amputation. IMPRESSION: Second distal phalanx fracture with associated laceration and/or partial soft tissue amputation. WSN: [id number] Ordering Physician: Sandra Smith Dictated By: Rafal Marcos MD Dictated Date/Time: 04/12/21 3:18 pm Reviewed By: Rafal Marcos MD Signed By: Rafal Marcos MD Signed Date/Time: 04/12/21 3:18 pm Transcribed By: ZAFAR Transcribed Date/Time: 04/12/21 3:16 pm Vital Signs Most recent to oldest [Reference Range]: 1 2 3 Height 164 cm (04/12/21 2:24 PM) 164 cm (04/12/21 2:04 PM) Weight 95.5 kg (04/12/21 2:24 PM) 95.5 kg (04/12/21 2:04 PM) Oxygen Saturation [94-100 %] 98 % (04/13/21 12:02 AM) 98 % (04/12/21 10:49 PM) 98 % (04/12/21 7:55 PM) Pulse Rate [55-90 bpm] 66 bpm (04/13/21 12:02 AM) 65 bpm (04/12/21 10:49 PM) 64 bpm (04/12/21 7:55 PM) Body Mass Index [18.5-24.99] 35.51 *>HHI* (04/12/21 2:04 PM) Blood Pressure [90-138/55-84 mm Hg] 122/76mm Hg (04/13/21 12:02 AM) 125/78mm Hg (04/12/21 10:49 PM) 147/95mm Hg *H* (04/12/21 7:55 PM) Respiratory Rate [16-30 br/min] 18 br/min (04/13/21 12:02 AM) 18 br/min (04/12/21 11:17 PM) 17 br/min (04/12/21 10:49 PM) Temperature [96.8-100.4 DegF] 98.3 DegF (04/12/21 10:49 PM) 98.3 DegF (04/12/21 7:55 PM) 98.2 DegF (04/12/21 5:20 PM) Mode of Delivery (Oxygen) Room air (04/13/21 12:02 AM) Room air (04/12/21 10:49 PM) Room air (04/12/21 7:55 PM) Blood pressure sites Arm, left (04/13/21 12:02 AM) Arm, left (04/12/21 10:49 PM) Arm, left (04/12/21 7:55 PM) Temperature Route Oral (04/12/21 10:49 PM) Oral (04/12/21 7:55 PM) Oral (04/12/21 5:20 PM) Dry Weight 95.5 kg (04/12/21 2:24 PM) 95.5 kg (04/12/21 2:04 PM) Weight Obtained Via Patient/family state d (04/12/21 2:04 PM) Dry Weight Obtained Via Patient/family s tated (04/12/21 2:04 PM) Social History Social History Type Response Smoking Status Current some day smo ker entered on: 08/09/15 Sex Male
--- OUTSIDE RECORDS SUMMARY | 2024-07-13 19:36 | XMS_ITS | Continuity of Care Document ---
Author Organization [facility] Address [address] [place] [address]- Care Team Providers Care Rn Orthopaedics Name Role Phone Ping Jimenez MD Primary Care Physician Encounter [facility] [place] [facility] [id number] Date(s): 09/18/22 - 10/18/[address] [address]- Attending Physician: Talisha Wyman Admitting Physician: Talisha Wyman Referring Physician: Talisha Wyman Allergies, Adverse Reactions, Alerts No Known Allergies [...] 4 02/16/09 Given 1Result Comment: [08/05/2013] Flulaval [id number] 2Admin Note: VIS 7-12 3Admin Note: vis given 4Admin Note: vis given Medications chlorthalidone 25 mg oral tablet 25 mg, 1, tablet, By Mouth, Daily, for 90 days, # 90 tablet, Refills 11, Tot. Refills 11, Hard Stop05/19/25 15:58:00 EDT, 06/04/22 15:58:00 EDT, Route to Pharmacy Electronically, [facility]/pharmacy #[id number],162, cm, 06/04/22 15:28:00 EDT, Height, 91, kg, ... Start Date: 06/04/22 Stop Date: 05/19/25 Status: Ordered chlorthalidone 25 mg oral tablet 25 mg, 1, tablet, By Mouth, Daily, # 90 tablet, Refills 11, Tot. Refills 11, Maintenance, 05/19/25 15:58:00 EDT, Route to Pharmacy Electronically, [facility]/pharmacy #[id number], 162, cm, 06/04/22 15:28:00 EDT, Height, 91, kg, 04/18/21 11:47:00 EDT, Dry Weight Start Date: 05/19/25 Stop Date: 05/03/28 Status: Ordered CPAP sent to [facility] CPAP sent to [facility], See Instructions, # 1 units, Refills 0, Tot. Refills 0, Maintenance, CPAP script faxed to [facility], 01/12/19 11:44:52 EST, Compound Start Date: 01/12/19 Status: Ordered Keppra 500 mg oral tablet 1 tablet = 500 mg, By Mouth, 2 times a day, # 60 tablet, 5 Refills, Maintenance, 06/04/22 16:59:00 EDT, Tablet, [facility]/pharmacy #[id number], Partial fill upon patient [...] 05/19/25 15:56:00 EDT, 06/04/22 15:56:00 EDT, Tablet, [facility]/pharmacy #[id number], 162, cm, 06/04/22 15:28:00 ED... Start [...] Care Nurse Name: Ping Jimenez MD Position: [facility] Resident Member Role: PCP Address: Address: [address] [place] [address] [place] [address]- Care Team Related Persons Name: ALETA KATE Address: home [address] [address]
--- OUTSIDE RECORDS SUMMARY | 2024-07-13 19:36 | XMS_ITS | Continuity of Care Document ---
Author Organization [facility] Address [address] [place] [address]- Care Team Providers Care Adjunct Latin Professor Name Role Phone Ping Jimenez MD Primary Care Physician [phone] [place] [facility] [place] 12/27/23 [facility] [address] [place] [address]- Attending Physician: Talisha Wyman Admitting Physician: Talisha [...] 4 02/16/09 Given 1Result Comment: [08/05/2013] Flulaval [id number] 2Admin Note: VIS 7-12 3Admin Note: vis given 4Admin Note: vis given Medications chlorthalidone 25 mg oral tablet 25 mg, 1, tablet, By Mouth, Daily, # 30 tablet, Refills 5, Tot. Refills 5, Maintenance, 09/09/23 15:45:00 EDT, Route to Pharmacy Electronically, [facility]/pharmacy #[id number], Partial fill upon patient request if the prescription is for a schedule II opioid drug... Start Date: 09/09/23 Status: Ordered chlorthalidone 25 mg oral tablet 25 mg, 1, tablet, By Mouth, Daily, for 90 days, # 90 tablet, Refills 11, Tot. Refills 11, Hard Stop12/31/25 8:56:00 EST, 01/16/23 8:56:00 EST, Route to Pharmacy Electronically, [facility]/pharmacy #[id number], 162, cm, 01/16/23 8:44:00 [...] Refills, Maintenance, 03/20/23 15:48:00 EDT, Tablet, [facility]/pharmacy #[id number], Partial fill upon patient request if the prescription is for a schedule II opioid drug., 162, cm, 03/20/23 15:20:00 E... Start Date: 03/20/23 Status: Ordered lisinopril 40 mg oral tablet 1 tablet = 40 mg, By Mouth, Daily, # 30 tablet, 5 Refills, Maintenance, 09/09/23 15:45:00 EDT, [facility]/pharmacy #[id number], Partial fill upon patient [...] Team Personnel Name: Julien Gunn RN Position: [facility] RN Member Role: Primary Care Nurse Name: Ping Jimenez MD Position: [facility] Resident Member Role: PCP Address: Address: [address] [place] [address] [place] [address]- Care Team Related Persons Name: ALETA KATE Address: home [address] [address]
--- OUTSIDE RECORDS SUMMARY | 2024-07-13 19:36 | XMS_ITS | Continuity of Care Document ---
Author Organization [facility] Address [address] [place] [address]- Care Team Providers Care Inspector Soldering Name Role Phone Ping Jimenez MD Primary Care Physician [place] [facility] [place]22 [facility] [address] [place], [place] [address] Allergies, Adverse Reactions, Alerts No Known Allergies [...] 4 02/16/09 Given 1Result Comment: [08/05/2013] Flulaval [id number] 2Admin Note: VIS 7-12 3Admin Note: vis given 4Admin Note: vis given Medications chlorthalidone 25 mg oral tablet 25 mg, 1, tablet, By Mouth, Daily, for 90 days, # 90 tablet, Refills 11, Tot. Refills 11, Hard Stop05/19/25 15:58:00 EDT, 06/04/22 15:58:00 EDT, Route to Pharmacy Electronically, [facility]/pharmacy #[id number],162, cm, 06/04/22 15:28:00 EDT, Height, 91, kg, ... Start Date: 06/04/22 Stop Date: 05/19/25 Status: Ordered chlorthalidone 25 mg oral tablet 25 mg, 1, tablet, By Mouth, Daily, # 90 tablet, Refills 11, Tot. Refills 11, Maintenance, 05/19/25 15:58:00 EDT, Route to Pharmacy Electronically, [facility]/pharmacy #[id number], 162, cm, 06/04/22 15:28:00 EDT, Height, 91, kg, 04/18/21 11:47:00 EDT, Dry Weight Start Date: 05/19/25 Stop Date: 05/03/28 Status: Ordered CPAP sent to [facility] CPAP sent to [facility], See Instructions, # 1 units, Refills 0, Tot. Refills 0, Maintenance, CPAP script faxed to [facility], 01/12/19 11:44:52 EST, Compound Start Date: 01/12/19 Status: Ordered Keppra 500 mg oral tablet 1 tablet = 500 mg, By Mouth, 2 times a day, # 60 tablet, 5 Refills, Maintenance, 06/04/22 16:59:00 EDT, Tablet, [facility]/pharmacy #[id number], Partial fill upon patient request if [...] 05/19/25 15:56:00 EDT, 06/04/22 15:56:00 EDT, Tablet, [facility]/pharmacy #[id number], 162, cm, 06/04/22 15:28:00 ED... Start Date: 06/04/22 Stop Date: 05/19/25 Status: Ordered lisinopril 40 mg oral tablet 1 tablet = 40 mg, By Mouth, Daily, Please see your PCP for a physical and obtain labwork (ordered),# 90 tablet, 11 Refills, Maintenance, 05/19/25 15:56:00 EDT, Tablet, [facility]/pharmacy #[id number], 162, cm, 06/04/22 15:28:00 EDT, Height, [...]
--- OUTSIDE RECORDS SUMMARY | 2024-07-13 19:36 | XMS_ITS | Continuity of Care Document ---
Author Organization [facility] Address [address] [place] [address]- Care Team Providers Care Manager Beverage Name Role Phone Ping Jimenez MD Primary Care Physician [phone] [place] [facility] [place]08[place] - 09/07/22 [facility] [address] [place] [address]- Attending Physician: Talisha Wyman Admitting Physician: AdmtrTalisha Referring Physician: Admtr, Ar8 [...] 4 02/16/09 Given 1Result Comment: [08/05/2013] Flulaval [id number] 2Admin Note: VIS 7-12 3Admin Note: vis given 4Admin Note: vis given Medications chlorthalidone 25 mg oral tablet 25 mg, 1, tablet, By Mouth, Daily, for 90 days, # 90 tablet, Refills 11, Tot. Refills 11, Hard Stop05/19/25 15:58:00 EDT, 06/04/22 15:58:00 EDT, Route to Pharmacy Electronically, [facility]/pharmacy #[id number],162, cm, 06/04/22 15:28:00 EDT, Height, 91, kg, ... Start Date: 06/04/22 Stop Date: 05/19/25 Status: Ordered chlorthalidone 25 mg oral tablet 25 mg, 1, tablet, By Mouth, Daily, # 90 tablet, Refills 11, Tot. Refills 11, Maintenance, 05/19/25 15:58:00 EDT, Route to Pharmacy Electronically, [facility]/pharmacy #[id number], 162, cm, 06/04/22 15:28:00 EDT, Height, 91, kg, 04/18/21 11:47:00 EDT, Dry Weight Start Date: 05/19/25 Stop Date: 05/03/28 Status: Ordered CPAP sent to [facility] CPAP sent to [facility], See Instructions, # 1 units, Refills 0, Tot. Refills 0, Maintenance, CPAP script faxed to [facility], 01/12/19 11:44:52 EST, Compound Start Date: 01/12/19 Status: Ordered Keppra 500 mg oral tablet 1 tablet = 500 mg, By Mouth, 2 times a day, # 60 tablet, 5 Refills, Maintenance, 06/04/22 16:59:00 EDT, Tablet, [facility]/pharmacy [...] 05/19/25 15:56:00 EDT, 06/04/22 15:56:00 EDT, Tablet, [facility]/pharmacy #[id number], 162, cm, 06/04/22 15:28:00 ED... [...] 08/08/22 Sex Male Patient Care team information Personnel Name: Ping Jimenez MD Address: Address: [address] [place] [address] [place], [place] [address]
--- OUTSIDE RECORDS SUMMARY | 2024-07-13 19:36 | XMS_ITS | Continuity of Care Document ---
Author Organization [facility] Address [address] [place] [address]- Care Team Providers Care Slunk Skinner Name Role Phone Ping Jimenez MD Primary Care Physician [place] [facility] [place] 12/30/23 - 01/29/24 [facility] [address] [place] [address]- Attending Physician: Talisha Wyman Admitting Physician: Talisha [...] 4 02/16/09 Given 1Result Comment: [08/05/2013] Flulaval [id number] 2Admin Note: VIS -12 3Admin Note: vis [...] Team Personnel Name: Julien Gunn RN Position: [facility] RN Member Role: Primary Care Nurse Name: Ping Jimenez MD Position: [facility] Resident Member Role: PCP Address: Address: [address] [place] [address] [place] [address]- Care Team Related Persons Name: ALETA KATE Address: home [address] [place] [address]
--- OUTSIDE RECORDS SUMMARY | 2024-07-13 19:36 | XMS_ITS | Continuity of Care Document ---
Author Organization [facility] Address [address] [place] [address]- Care Team Providers Care Crabbing Machine Operator Name Role Phone Ping Jimenez MD Primary Care Physician [place] [facility] [place]21 [place] 07/[place]/21 [facility] [address] [place], [place] [address] Allergies, Adverse Reactions, Alerts Substance Reaction Severity [...] 4 02/16/09 Given 1Result Comment: [08/05/2013] Flulaval [id number] 2Admin Note: VIS 7-12 3Admin Note: vis [...] Refills 0, Maintenance, CPAP script faxed to [facility], 01/12/19 11:44:52 EST, Compound Start [...] Active Social History Social History Type Response Tobacco Use: 4 or less cigar ettes(less than 1/4 pack)/day in last 30 days. Started at age: 18 Years. Sex Male
--- OUTSIDE RECORDS SUMMARY | 2024-07-13 19:36 | XMS_ITS | Continuity of Care Document ---
Author Organization [facility] Address [address] [place] [address]- Care Team Providers Care Blend Plant Operator Name Role Phone Ping Jimenez MD Primary Care Physician Encounter [facility] Date(s): 09/10/23 - 12/30/23 [facility] [address], [place] [address] Discharge Disposition: A-D/C Home Attending Physician: Doroteo Ochoa MD Admitting Physician: Doroteo Ochoa MD Referring Physician: Ping Jimenez MD Allergies, Adverse [...] 4 02/16/09 Given 1Result Comment: [08/05/2013] Flulaval [id number] 2Admin Note: VIS 7-12 3Admin Note: vis given 4Admin Note: vis given Medications chlorthalidone 25 mg oral tablet 25 mg, 1, tablet, By Mouth, Daily, # 30 tablet, Refills 5, Tot. Refills 5, Maintenance, 09/09/23 15:45:00 EDT, Route to Pharmacy Electronically, [facility]/pharmacy #[id number], Partial fill upon patient request if the prescription is for a schedule II opioid drug... Start Date: 09/09/23 Status: Ordered chlorthalidone 25 mg oral tablet 25 mg, 1, tablet, By Mouth, Daily, for 90 days, # 90 tablet, Refills 11, Tot. Refills 11, Hard Stop12/31/25 8:56:00 EST, 01/16/23 8:56:00 EST, Route to Pharmacy Electronically, [facility]/pharmacy #[id number], 162, cm, 01/16/23 8:44:00 EST, [...] Refills, Maintenance, 03/20/23 15:48:00 EDT, Tablet, [facility]/pharmacy #[id number], Partial fill upon patient request if the prescription is for a schedule II opioid drug., 162, cm, 03/20/23 15:20:00 E... Start Date: 03/20/23 Status: Ordered lisinopril 40 mg oral tablet 1 tablet = 40 mg, By Mouth, Daily, # 30 tablet, 5 Refills, Maintenance, 09/09/23 15:45:00 EDT, [facility]/pharmacy #[id number], Partial fill upon patient request [...] Team Personnel Name: Julien Gunn RN Position: [facility] RN Member Role: Primary Care Nurse Name: Ping Jimenez MD Position: [facility] Resident Member Role: PCP Address: Address: [address] [place] [address] [place] [address]- Care Team Related Persons Name: HUMBLEALETA Address: home [address] [place] [id number]
--- OUTSIDE RECORDS SUMMARY | 2024-07-13 19:36 | XMS_ITS | Continuity of Care Document ---
Author Organization [facility] Address [address] [place] [address]- Care Team Providers Care Awning Craftsperson Name Role Phone Ping Jimenez MD Primary Care Physician [phone] [id number] Date(s): 06/20/22 - 10/18/[address] [address]- Attending Physician: Sandra Topete Admitting Physician: Sandra Topete Referring Physician: Ping Jimenez MD Allergies, Adverse [...] 4 02/16/09 Given 1Result Comment: [08/05/2013] Flulaval [id number] 2Admin Note: VIS 7-12 3Admin Note: vis given 4Admin Note: vis given Medications chlorthalidone 25 mg oral tablet 25 mg, 1, tablet, By Mouth, Daily, for 90 days, # 90 tablet, Refills 11, Tot. Refills 11, Hard Stop05/19/25 15:58:00 EDT, 06/04/22 15:58:00 EDT, Route to Pharmacy Electronically, [facility]/pharmacy #[id number],162, cm, 06/04/22 15:28:00 EDT, Height, 91, kg, ... Start Date: 06/04/22 Stop Date: 05/19/25 Status: Ordered chlorthalidone 25 mg oral tablet 25 mg, 1, tablet, By Mouth, Daily, # 90 tablet, Refills 11, Tot. Refills 11, Maintenance, 05/19/25 15:58:00 EDT, Route to Pharmacy Electronically, [facility]/pharmacy #[id number], 162, cm, 06/04/22 15:28:00 EDT, Height, 91, kg, 04/18/21 11:47:00 EDT, Dry Weight Start Date: 05/19/25 Stop Date: 05/03/28 Status: Ordered CPAP sent to [facility] CPAP sent to [facility], See Instructions, # 1 units, Refills 0, Tot. Refills 0, Maintenance, CPAP script faxed to [facility], 01/12/19 11:44:52 EST, Compound Start Date: 01/12/19 Status: Ordered Keppra 500 mg oral tablet 1 tablet = 500 mg, By Mouth, 2 times a day, # 60 tablet, 5 Refills, Maintenance, 06/04/22 16:59:00 EDT, Tablet, [facility]/pharmacy #[id number], Partial fill upon patient request if [...] 05/19/25 15:56:00 EDT, 06/04/22 15:56:00 EDT, Tablet, [facility]/pharmacy #[id number], 162, cm, 06/04/22 15:28:00 ED... Start [...] Care team information Care Team Personnel Name: Velia CHOE, Julien Position: S RN Member Role: Primary Care Nurse Name: Ping Jimenez MD Position: [facility] Resident Member Role: PCP Address: Address: [address] [place] [address] [place] [address]- Care Team Related Persons Name: ALETA KATE Address: home [address] [address]
--- OUTSIDE RECORDS SUMMARY | 2024-07-13 19:36 | XMS_ITS | Continuity of Care Document ---
Author Organization [facility] Address [address] [place] [address]- Care Team Providers Care Electric Truck Driver Name Role Phone Ping Jimenez MD Primary Care Physician [place] [facility] Date(s): 02/13/23 - 03/15/23 [facility] [address], [place] [address] Attending Physician: Talisha Wyman Admitting Physician: AdmtrTalisha Referring Physician: Admtr, ArJeri Allergies, Adverse Reactions, [...] 4 02/16/09 Given 1Result Comment: [08/05/2013] Flulaval [id number] 2Admin Note: VIS 7-12 3Admin Note: vis given 4Admin Note: vis given Medications chlorthalidone 25 mg oral tablet 25 mg, 1, tablet, By Mouth, Daily, for 90 days, # 90 tablet, Refills 11, Tot. Refills 11, Hard Stop12/31/25 8:56:00 EST, 01/16/23 8:56:00 EST, Route to Pharmacy Electronically, [facility]/pharmacy #[id number], 162, cm, 01/16/23 8:44:00 EST, [...] 3 Refills, Maintenance, 01/29/23 18:50:00 EST, Capsule, [facility]/pharmacy #[id number], Partial fill upon patient [...] Care Nurse Name: Ping Jimenez MD Position: [facility] Resident Member Role: PCP Address: Address: [address] [place] [address] [place] [address]- Care Team Related Persons Name: ALETA KATE Address: home [address] [address]
--- OUTSIDE RECORDS SUMMARY | 2024-07-13 19:36 | XMS_ITS | Continuity of Care Document ---
Author Organization [facility] Address [address] [place] [address]- Care Team Providers Care Drop Wire Aligner Name Role Phone Henry RAMOS, Christi Gracia Primary Care Physici an Encounter [facility] Date(s): 10/03/20 - 11/02/20 [facility] [address] [place] [address]- Attending Physician: Talisha Wyman Admitting Physician: AdmTalisha [...] 4 02/16/09 Given 1Result Comment: [08/05/2013] Flulaval [id number] 2Admin Note: VIS - 3Admin Note: vis [...] 0 Refills, Maintenance, 10/01/20 19:41:00 EST, Tablet, [facility]/pharmacy #[id number], 167, cm, 02/02/20 9:57:00 EDT, Height, 96.6, kg, 02/02/20 9:57:00 EDT, Dry Weight Start Date: 10/01/20 Status: Ordered phenytoin 100 mg oral capsule, extended release 2 capsule = 200 mg, By Mouth, 2 times a day, # 360 capsule, 1 Refills, Maintenance, 10/01/20 19:41:00 EST, CR Capsule, [facility]/pharmacy #[id number], 167, cm, 02/02/20 9:57:00 EDT, [...]
--- OUTSIDE RECORDS SUMMARY | 2024-07-13 19:37 | XMS_ITS | Continuity of Care Document ---
Author Organization [facility] Address [address] [place] [address]- Care Team Providers Care Court Advocate Name Role Phone Ping Jimenez MD Primary Care Physician Encounter [facility] Date(s): 12/17/21 - 03/01/22 [facility] [address] [place] [address]- Attending Physician: Not on Staff, Attending MD [...] 4 02/16/09 Given 1Result Comment: [08/05/2013] Flulaval [id number] 2Admin Note: VIS 7-12 3Admin Note: vis [...] 0 Refills, Maintenance, 07/11/21 11:15:00 EDT, Tablet, [facility]/pharmacy #[id number], 162, cm, 04/18/21 11:47:00 EDT, Height, 91, kg, 04/18/21 11:47:00 EDT, Dry Weight Start Date: 07/11/21 Status: Ordered CPAP sent to [facility] CPAP sent to [facility], See Instructions, # 1 units, [...]
--- OUTSIDE RECORDS SUMMARY | 2024-07-13 19:37 | XMS_ITS | Continuity of Care Document ---
Author Organization [facility] Address [address] [place] [address]- Care Team Providers Care Social Service Technician Name Role Phone Ping Jimenez MD Primary Care Physician [phone] Encounter [facility] Date(s): 08/06/21 - 09/05/21 [facility] [address] [place] [id number] Attending Physician: AdmTalisha gallagher Admitting Physician: AdmtrTalisha [...] 4 02/16/09 Given 1Result Comment: [08/05/2013] Flulaval [id number] 2Admin Note: VIS 7-12 3Admin Note: vis [...] 0 Refills, Maintenance, 07/11/21 11:15:00 EDT, Tablet, [facility]/pharmacy #[id number], 162, cm, 04/18/21 11:47:00 EDT, Height, [...]
--- OUTSIDE RECORDS SUMMARY | 2024-07-13 19:37 | XMS_ITS | Continuity of Care Document ---
Author Organization [facility] Address [address] [place] [address]- Care Team Providers Care Continuous Absorption Process Operator Name Role Phone Ping Jimenez MD Primary Care Physician [place] [facility] Date(s): 06/05/22 - 07/05/22 [facility] [address] [place], [place] [address] Allergies, Adverse Reactions, Alerts [...] 4 02/16/09 Given 1Result Comment: [08/05/2013] Flulaval [id number] 2Admin Note: VIS 7-12 3Admin Note: vis given 4Admin Note: vis given Medications chlorthalidone 25 mg oral tablet 25 mg, 1, tablet, By Mouth, Daily, for 90 days, # 90 tablet, Refills 11, Tot. Refills 11, Hard Stop05/19/25 15:58:00 EDT, 06/04/22 15:58:00 EDT, Route to Pharmacy Electronically, [facility]/pharmacy #[id number],162, cm, 06/04/22 15:28:00 EDT, Height, 91, kg, ... Start Date: 06/04/22 Stop Date: 05/19/25 Status: Ordered chlorthalidone 25 mg oral tablet 25 mg, 1, tablet, By Mouth, Daily, # 90 tablet, Refills 11, Tot. Refills 11, Maintenance, 05/19/25 15:58:00 EDT, Route to Pharmacy Electronically, [facility]/pharmacy #[id number], 162, cm, 06/04/22 15:28:00 EDT, Height, 91, kg, 04/18/21 11:47:00 EDT, Dry Weight Start Date: 05/19/25 Stop Date: 05/03/28 Status: Ordered CPAP sent to [facility] CPAP sent to [facility], See Instructions, # 1 units, Refills 0, Tot. Refills 0, Maintenance, CPAP script faxed to [facility], 01/12/19 11:44:52 EST, Compound Start Date: 01/12/19 Status: Ordered Keppra 500 mg oral tablet 1 tablet = 500 mg, By Mouth, 2 times a day, # 60 tablet, 5 Refills, Maintenance, 06/04/22 16:59:00 EDT, Tablet, [facility]/pharmacy #[id number], Partial fill upon patient request if [...] EDT, 06/04/22 15:56:00 EDT, Tablet, [facility]/pharmacy #[id number], 162, cm, 06/04/22 15:28:00 ED... Start Date: 06/04/22 Stop Date: 05/19/25 Status: Ordered lisinopril 40 mg oral tablet 1 tablet = 40 mg, By Mouth, Daily, Please see your PCP for a physical and obtain labwork (ordered),# 90 tablet, 11 Refills, Maintenance, 05/19/25 15:56:00 EDT, Tablet, [facility]/pharmacy #[id number], 162, cm, 06/04/22 15:28:00 EDT, Height, [...]
--- OUTSIDE RECORDS SUMMARY | 2024-07-13 19:37 | XMS_ITS | Continuity of Care Document ---
Author Organization [facility] Address [address] [place] [address]- Care Team Providers Care Transfer And Pumphouse Operator Name Role Phone Tony RAMOS, Ping Primary Care Physician Encounter [facility] Date(s): 11/25/21 - 12/25/21 [facility] [address] [place], [place] [address] Allergies, Adverse Reactions, Alerts No Known Allergies [...] 4 02/16/09 Given 1Result Comment: [08/05/2013] Flulaval [id number] 2Admin Note: VIS -12 3Admin Note: vis [...] Date: 07/11/21 Status: Ordered CPAP sent to [facility] CPAP sent to [facility], See Instructions, # 1 units, [...]
[2024-07-13 19:38] LABS: Basophils Absolute Auto 0.1 X10*3/uL (0.0-0.2); Basophils Percent Auto 0.6 % (0-2); Eosinophils Absolute Auto 0.4 X10*3/uL (0.0-0.4); Eosinophils Percent Auto 4.3 % (0-4); Hematocrit 49.6 % (42.0-52.0); Hemoglobin 17.7 g/dl (14.0-18.0); Imm Gran Abs Auto 0.02 X10*3/uL (0.00-0.03); Imm Gran Pct Auto 0.2 % (0.0-0.4); Lymphocytes Absolute Auto 2.3 X10*3/uL (1.2-4.9); Mean Corpuscular HGB Conc 35.7 g/dl (31.0-36.0); Mean Corpuscular Hemoglobin 30.7 pg (27.0-33.0); Mean Platelet Volume 10.5 fL (9.4-12.4); Monocytes Absolute Auto 0.7 X10*3/uL (0.1-1.2); Monocytes Percent Auto 8.4 % (2-11); Neutrophils Absolute Auto 5.1 x10*3/uL (2.0-8.3); Neutrophils Percent Auto 59.5 % (45-73); Platelet Count 199 X10*3/uL (160-400); Red Blood Count 5.77 X10*6/uL (4.60-5.80); Red Cell Distribution Width 12.1 % (11.0-16.0); White Blood Count 8.6 X10*3/uL (4.8-10.8)
[2024-07-13 19:54] LABS: Alanine Aminotransferase 17 U/L (0-40); Alkaline Phosphatase 74 U/L (39-117); Anion Gap 12 (12-20); Aspartate Amino Transferase 18 U/L (5-37); Bilirubin Total 0.4 mg/dL (0.0-1.0); Blood Urea Nitrogen 14 mg/dL (9-16); Calcium 9.9 mg/dL (8.4-10.2); Carbon Dioxide 25 mmol/L (22-29); Chloride 105 mmol/L (96-108); Creatinine Clr Calc Pharmacy 91.4; Estimated Glomerular Filt Rate > 60; Glucose Random 113 mg/dL (60-115); Lipase 21 U/L (8-78); Potassium 3.2 mmol/L (3.3-5.1); Sodium 139 mmol/L (135-145)
[2024-07-13 19:55] LABS: COVID-19 Test Negative (Negative); IDNOW Serial# 6674DD1D
[2024-07-14 00:52] VITALS: BP 129/104; PULSE 101; RESP 18; TEMP 36.4; O2SAT 96
[2024-07-14 02:50] VITALS: BP 176/127; PULSE 82; RESP 16; TEMP 36.6; O2SAT 95
[2024-07-14] MEDS: Ketorolac Tromethamine 30 MG/ML VIAL IVPUSH (03:04)
[2024-07-14] MEDS: Pantoprazole Sodium 40 MG/10 ML VIAL IVPUSH (03:04)
[2024-07-14] MEDS: Metoclopramide HCl 10 MG/2 ML VIAL IVPUSH (03:04)
[2024-07-14 03:12] VITALS: BP 155/104; PULSE 72; RESP 18; O2SAT 97
[2024-07-14 03:17] LABS: Appearance Urine Clear; Color Urine Yellow; Glucose Urine UA Negative (Negative); Leukocyte Esterase Urine Negative (Negative); Nitrite Urine Negative (Negative); PH 5.5 (5.0-9.0); Specific Gravity - Urine 1.025 (1.005-1.025); Urine Blood Negative (Negative); Urine Ketones Negative (Negative); Urine Protein Negative (Neg-Trace)
[2024-07-14 03:20] LABS: Bacteria Urine None Seen (None Seen); Hyaline Casts Urine 0-2 /LPF (0-2); RBC Urine 0-2 /HPF (0-2); Squamous Epithelial Cell Urine 0-2 /HPF (0-2); WBC Urine 0-5 /HPF (0-5)
[2024-07-14 04:01] VITALS: BP 148/99; PULSE 65; RESP 16; TEMP 36.6; O2SAT 95
[2024-07-14 05:00] VITALS: BP 148/99; PULSE 65; RESP 16; TEMP 36.6; O2SAT 95
== END 2024-07-14 05:01 | disposition home or self-care (01) ==
PROVIDERS: Physician Assistant; Emergency Provider Emergency Medicine
DX: R51.9 Headache, unspecified (principal); R11.2 Nausea with vomiting, unspecified; R10.13 Epigastric pain; K29.70 Gastritis, unspecified, without bleeding
CPT/HCPCS: 36415; 70450; 80053; 81001; 83690; 85025; 87635; 96374; 96375; 99284; J1885; J2470; J2765